=== PATIENT | female | born 1960 | race Caucasian/White ===

== ENCOUNTER 2017-11-21 01:06 | Emergency (ER) | payer BC ==
[2017-11-21 01:19] VITALS: BP 167/86; PULSE 107; TEMP 102.4; BMI 26.5
[2017-11-21] MEDS ORDERED: SODIUM CHLORIDE 1,000 ML IV STA (01:39)
--- NOTE | 2017-11-21 01:44 | PDOC ---
History of Present Illness - General Chief Complaint: Weakness Stated Complaint: WEAKNESS Time Seen by Provider: 11/21/17 01:08 History Source: Patient Exam Limitations: No Limitations - History of Present Illness Initial Comments: 11/21/17 01:40 57y F hx of dm, htn, presents with fevers/chills. Patient notes that she was feeling fine earlier today approximately midnight she started to develop fevers and chills. Patient endorses a mild posterior headache denies any neck stiffness, vision changes, numbness, tingling, weakness, cough, sneezing, nasal congestion, ear pain, shortness of breath, chest pain, abdominal pain, diarrhea , dysuria, frequency. Denies any recent travel or known sick contacts. Past History - Past Medical History Allergies/Adverse Reactions: Allergies Allergy/AdvReac Type Severity Reaction Status Date / Time No Known Allergies Allergy Verified 11/21/17 14:46 Home Medications: Ambulatory Orders Insulin (LOG) Aspart [NovoLOG -] 0 units SQ TID 11/21/17 Levofloxacin [Levaquin] 750 mg PO DAILY #7 tablet 11/21/17 - Suicide/Smoking/Psychosocial Hx Smoking History: Never smoked Have you smoked in the past 12 months: No Information on smoking cessation initiated: No Hx Alcohol Use: No Drug/Substance Use Hx: No Review of Systems - Review of Systems Able to Perform ROS?: Yes Comments:: 11/21/17 01:41 Constitutional - +Fever, Chills, no reported HEENT: no reported vision changes, sore throat Respiratory: no reported cough, sob, hemoptysis Cardiac: no reported chest pain, palpitations, light headedness, leg swelling Abd/GI: no reported abd pain, nausea, vomiting, blood per rectum, melena, diarrhea : no reported dysuria, frequency, discharge Musculskelatal - no reported back pain, joint swelling skin - no reported bruising, erythema, rash neurological: + headache, no reported numbness, focal weakness, tingling, ataxia , hematologic: no reported easy bruising, easy bleeding *Physical Exam - Vital Signs Last Vital Signs Temp Pulse Resp BP Pulse Ox 102.4 F H 107 H 18 167/86 98 11/21/17 01:14 11/21/17 01:14 11/21/17 01:14 11/21/17 01:14 11/21/17 01:14 - Physical Exam Comments: 11/21/17 01:42 GENERAL: The patient is awake, alert, and fully oriented, Nontoxic - in no acute distress. HEAD: Normocephalic, atraumatic. EYES: extraocular movements intact, sclera anicteric, conjunctiva clear. ENT: Normal voice, Moist mucous membranes. NECK: Normal range of motion, supple, negative Brudzinski and Kernig's LUNGS: Breath sounds equal, clear to auscultation bilaterally. No wheezes, no rhonchi, no rales. HEART: Regular rate and rhythm, normal S1 and S2 without murmur, rub or gallop. ABDOMEN: Soft, nontender, normoactive bowel sounds. No guarding, no rebound. . No CVA tenderness EXTREMITIES: Normal range of motion, no edema. No clubbing or cyanosis. No cords, erythema, or tenderness. NEUROLOGICAL: No facial assymetry, Normal speech, PSYCH: Normal mood, normal affect. SKIN: Warm, Dry, normal turgor, ED Treatment Course - LABORATORY CBC & Chemistry Diagram: 11/21/17 01:35 11/21/17 01:35 - RADIOLOGY Radiology Studies Ordered: Category Date Time Status CHEST X-RAY PORTABLE* [RAD] Stat Radiology 11/21/17 01:39 Ordered Medical Decision Making - Medical Decision Making 11/21/17 01:42 57-year-old female history of hypertension, diabetes, presenting with fever starting approximately midnight no focal complaints beside mild posterior headache. Patient's exam is nonfocal. The patient's vitals are noted for being febrile as well as sorry tachycardic. Suspect occult infection, we'll obtain chest x-ray, UA, sepsis order set obtained. Consider possible meningitis however no signs of meningismus including a supple neck with negative Brudzinski and Kernig's with normal range of motion of her neck. Will give the patient fluids for hydration, IV Tylenol Will reassess 11/21/17 02:52 labs reviewed no leukocytosis UA consistent with UTI - will treate with IV levaquin here x 1, and will send course of abx for outpatient mangement I discussed the physical exam findings, ancillary test results and final diagnoses with the patient. I answered all of the patient's questions. The patient was satisfied with the care received and felt comfortable with the discharge plan and treatment plan. The patient will call their primary care physician within 24 hours to arrange follow-up and will return to the Emergency Department with any new, persistent or worsening symptoms. *DC/Admit/Observation/Transfer Diagnosis at time of Disposition: Urinary tract infection Qualifiers: Urinary tract infection type: site unspecified Hematuria presence: with hematuria Qualified Code(s): N39.0 - Urinary tract infection, site not specified - Discharge Dispostion Disposition: HOME Condition at time of disposition: Improved Decision to Admit order: No - Prescriptions Prescriptions: Levofloxacin [Levaquin] 750 mg PO DAILY #7 tablet - Referrals Referrals: [facility] [place] [Provider Group] - Patient Instructions Printed Discharge Instructions: DI for Urinary Tract Infection (UTI) Additional Instructions: Regrese al departamento de emergencia de inmediato con CUALQUIER sntoma nuevo, persistente o que empeore incluyendo fiebre / escalofros, dolor de espalda, incapacidad para tolerar la ingesta oral u otras preocupaciones. DEBE llamar y hacer un seguimiento con benedict mdico en 2-3 plunkett para henry evaluacin ms profunda de raymon sntomas. Los resultados fueron discutidos con usted. Asegrese de que benedict mdico revise los resultados de benedict evaluacin de emergencia. ====== Return to the emergency department immediately with ANY new, persistent or worsening symptoms including fever/chills, back pain, inability to tolerate oral intake or other concerns. You MUST call and follow up with your doctor in 2-3 days for further evaluation of your symptoms. Results were discussed with you. Please make sure your doctor reviews the results of your emergency evaluation. Print Language: YI - Post Discharge Activity
[2017-11-21 01:47] LABS: EOS % 1.4 % (0-4.5); HEMATOCRIT 38.3 % (32.4-45.2); HEMOGLOBIN 12.8 GM/dL (10.7-15.3); LYMPH % 13.8 % (8-40); MCH 30.3 pg (25.7-33.7); MCHC 33.5 g/dl (32.0-36.0); MEAN CELL VOLUME 90.4 fl (80-96); MEAN PLT VOLUME 11.3 fl (7.5-11.1); MONO % 3.1 % (3.8-10.2); NEUT % 80.7 % (42.8-82.8); PLATELET COUNT 180 K/MM3 (134-434); RBC 4.24 M/mm3 (3.60-5.2); RDW 13.1 % (11.6-15.6); WHITE BLOOD COUNT 8.3 K/mm3 (4.0-10.0)
[2017-11-21 02:05] LABS: INR 1.05 (0.83-1.09); PROTHROMBIN TIME (PATIENT) 11.9 SEC (9.7-13.0)
[2017-11-21 02:14] LABS: ALBUMIN 3.7 g/dl (3.4-5.0); ALK PHOS 110 U/L (45-117); ANION GAP 6 MMOL/L (8-16); BILIRUBIN,TOTAL 0.4 mg/dL (0.2-1.0); BLOOD UREA NITROGEN 25 mg/dL (7-18); CALCIUM 8.8 mg/dL (8.5-10.1); CHLORIDE 104 mmol/L (98-107); CO2 28 mmol/L (21-32); CREATININE 0.8 mg/dL (0.55-1.3); GLUCOSE,RANDOM 270 mg/dL (74-106); POTASSIUM 4.3 mmol/L (3.5-5.1); SGOT/AST 20 U/L (15-37); SGPT/ALT 21 U/L (13-61); SODIUM 138 mmol/L (136-145); TOT PROT 7.5 g/dl (6.4-8.2)
[2017-11-21 02:36] LABS: URINE APPEARANCE CLEAR; URINE BILIRUBIN NEGATIVE (<2.0 mg/dL); URINE COLOR LTYELLOW; URINE GLUCOSE (UA) 3+ (NEGATIVE); URINE KETONE NEGATIVE (NEGATIVE); URINE LEUK ESTERASE TRACE (NEGATIVE); URINE NITRITE POSITIVE (NEGATIVE); URINE PROTEIN NEGATIVE (NEGATIVE); URINE UROBILINOGEN NEGATIVE mg/dL (0.2-1.0)
[2017-11-21 02:38] LABS: EPI CELLS RARE /HPF (FEW); URINE BACTERIA MODERATE /hpf (NONE SEEN); URINE MUCUS RARE
--- NOTE | 2017-11-21 21:16 | EKG ---
Test Reason : Blood Pressure : / mmHG Vent. Rate : 105 BPM Atrial Rate : 105 BPM P-R Int : 192 ms QRS Dur : 094 ms QT Int : 338 ms P-R-T Axes : 049 -33 062 degrees QTc Int : 446 ms SINUS TACHYCARDIA LEFT AXIS DEVIATION SEPTAL INFARCT , AGE UNDETERMINED ABNORMAL ECG NO PREVIOUS ECGS AVAILABLE Confirmed by HERI HINOJOSA MD ([id number]) on 11/21/2017 9:16:35 PM Referred By: Confirmed By:HERI HINOJOSA MD
== END 2017-11-21 04:30 | disposition home or self-care (01) ==
LOC: JER 01:06
PROC: 3E03329 Introduction of Other Anti-infective into Peripheral Vein, Percutaneous Approach (ICD-10-PCS; principal; 2017-11-21)
PROC: 3E0337Z Introduction of Electrolytic and Water Balance Substance into Peripheral Vein, Percutaneous Approach (ICD-10-PCS; 2017-11-21)
DX: N39.0 Urinary tract infection, site not specified (principal); E11.9 Type 2 diabetes mellitus without complications; I10 Essential (primary) hypertension
CPT/HCPCS: 36415; 71045-TC-FY; 80053; 81003; 81015; 83605; 84484; 85025; 85610; 87040; 87086; 87186; 93005; 93010; 99281-25; J7030

== ENCOUNTER 2017-11-21 14:41 | Inpatient (IN) | payer BC ==
--- NOTE | 2017-11-21 14:45 | PDOC ---
History of Present Illness - General Chief Complaint: Revisit, Lab Variance Stated Complaint: REVISIT Time Seen by Provider: 11/21/17 14:45 - History of Present Illness Initial Comments: 11/21/17 14:50 Ms. Renee is a 57 yo female w/ pmh of HTN, DM who presented this morning for fevers/chills and found to have UTI. Patient called back in as found to have gram negative bacilli in blood. Patient reports continued fevers, chills, and occasional burning in feet. Discussed need for admission for inpatient ABX. Patient consented. The patient denies chest pain, shortness of breath, headache and dizziness. Denies nausea, vomit, diarrhea and constipation. Denies dysuria, frequency, urgency and hematuria. Allergies: NKDA Past History - Past Medical History Allergies/Adverse Reactions: Allergies Allergy/AdvReac Type Severity Reaction Status Date / Time No Known Allergies Allergy Verified 11/21/17 14:46 Home Medications: Ambulatory Orders Levofloxacin [Levaquin] 750 mg PO DAILY #7 tablet 11/21/17 - Suicide/Smoking/Psychosocial Hx Smoking History: Never smoked Have you smoked in the past 12 months: No Hx Alcohol Use: No Drug/Substance Use Hx: No Review of Systems - Review of Systems Comments:: 11/21/17 15:02 GENERAL/CONSTITUTIONAL: +Fever/chills as described. No weakness. HEAD, EYES, EARS, NOSE AND THROAT: No change in vision. No ear pain or discharge. No sore throat. CARDIOVASCULAR: No chest pain or shortness of breath RESPIRATORY: No cough, wheezing, or hemoptysis. GASTROINTESTINAL: No nausea, vomiting, diarrhea or constipation. GENITOURINARY: No dysuria, frequency, or change in urination. MUSCULOSKELETAL: +Diabeteic leg pain. No joint or muscle swelling or pain. No neck or back pain. SKIN: No rash NEUROLOGIC: No headache, vertigo, loss of consciousness, or change in strength/ sensation. ENDOCRINE: No increased thirst. No abnormal weight change HEMATOLOGIC/LYMPHATIC: No anemia, easy bleeding, or history of blood clots. ALLERGIC/IMMUNOLOGIC: No hives or skin allergy. *Physical Exam - Physical Exam Comments: 11/21/17 15:03 GENERAL: Awake, alert, and fully oriented, in no acute distress HEAD: No signs of trauma, normocephalic, atraumatic EYES: PERRLA, EOMI, sclera anicteric, conjunctiva clear ENT: Auricles normal inspection, hearing grossly normal, nares patent, oropharynx clear without exudates. Moist mucosa NECK: Normal ROM, supple, no lymphadenopathy, JVD, or masses LUNGS: No distress, speaks full sentences, clear to auscultation bilaterally HEART: Regular rate and rhythm, normal S1 and S2, no murmurs, rubs or gallops, peripheral pulses normal and equal bilaterally. ABDOMEN: Soft, nontender, normoactive bowel sounds. No guarding, no rebound. No masses EXTREMITIES: Normal inspection, Normal range of motion, no edema. No clubbing or cyanosis. NEUROLOGICAL: Cranial nerves II through XII grossly intact. Normal speech, normal gait, no focal sensorimotor deficits SKIN: Warm, Dry, normal turgor, no rashes or lesions noted. Medical Decision Making - Medical Decision Making 11/21/17 15:04 Ms. Renee is a 57 yo female w/ pmh as described who represents upon direction for noted bacteremia. Patient will be started on zosyn and admitted to inpatient team for further care. *DC/Admit/Observation/Transfer Diagnosis at time of Disposition: Bacteremia Urinary tract infection Qualifiers: Urinary tract infection type: site unspecified Hematuria presence: with hematuria Qualified Code(s): N39.0 - Urinary tract infection, site not specified ; R31.9 - Hematuria, unspecified - Discharge Dispostion Decision to Admit order: Yes - Referrals - Patient Instructions - Post Discharge Activity
[2017-11-21] MEDS ORDERED: PIPERACILLIN/TAZOB 3.375 GM 3.375 GM in DEXTROSE 5%-WATER - 50 ML IVPB ONE (14:47)
[2017-11-21] MEDS ORDERED: PIPERACILLIN/TAZOB 3.375 GM 3.375 GM/50 ML BAG IVPB ONE (14:49)
--- NOTE | 2017-11-21 15:04 | PDOC ---
Attending Attestation - Resident Resident Name: RossfideliakaeRavi - ED Attending Attestation I have performed the following: I have examined & evaluated the patient, The case was reviewed & discussed with the resident, I agree w/resident's findings & plan, Exceptions are as noted - HPI HPI: 11/21/17 15:02 57-year-old female with pmh hypertension, diabetes was callback for positive blood cultures for gram-negative rods. Patient was seen here earlier today and noted to have a urinary tract infection and dischargde on fluoroquinolone. Patient continues to complain of persistent fevers and chills. Patient was called back to the ER. Patient has no other complaints. - Physicial Exam PE: 11/21/17 15:03 GENERAL: Awake, alert, and fully oriented, in no acute distress HEAD: No signs of trauma EYES:EOMI, sclera anicteric, conjunctiva clear ENT: Auricles normal inspection, hearing grossly normal, nares patent NECK: Normal ROM, supple EXTREMITIES: Normal range of motion, no edema. No clubbing or cyanosis. No cords, erythema, or tenderness NEUROLOGICAL: Cranial nerves II through XII grossly intact. Normal speech, SKIN: Warm, Dry, normal turgor, no rashes or lesions noted. - Medical Decision Making 11/21/17 15:03 Vital Signs Temp Pulse Resp BP Pulse Ox 99.1 F 83 18 108/59 99 11/21/17 14:43 11/21/17 14:43 11/21/17 14:43 11/21/17 14:43 11/21/17 14:43 Patient's findings and concerning for bacteremia given positive blood cultures. We'll initiate IV Zosyn and admit the patient to the hospital for urinary tract infection and bacteremia.
[2017-11-21] MEDS ORDERED: SODIUM CHLORIDE 500 ML IV STA (15:29)
[2017-11-21 15:34] LABS: BASO % 0.5 % (0-2.0); EOS % 0.8 % (0-4.5); HEMATOCRIT 36.6 % (32.4-45.2); HEMOGLOBIN 12.5 GM/dL (10.7-15.3); LYMPH % 13.4 % (8-40); MCH 30.6 pg (25.7-33.7); MCHC 34.1 g/dl (32.0-36.0); MEAN CELL VOLUME 89.7 fl (80-96); MEAN PLT VOLUME 10.9 fl (7.5-11.1); MONO % 7.4 % (3.8-10.2); NEUT % 77.9 % (42.8-82.8); PLATELET COUNT 165 K/MM3 (134-434); RBC 4.08 M/mm3 (3.60-5.2); RDW 13.3 % (11.6-15.6); WHITE BLOOD COUNT 8.5 K/mm3 (4.0-10.0)
[2017-11-21] MEDS ORDERED: ACETAMINOPHEN 325 MG TABLET (FP) PO PRN (15:36)
[2017-11-21] MEDS ORDERED: INSULIN REGULAR HUMAN 100 UNITS/ML *VIAL ONE (15:39)
[2017-11-21] MEDS: INSULIN SLIDING SCALE (NOVOLOG) 1 VIAL SQ SCH (15:41)
[2017-11-21] MEDS: SODIUM CHLORIDE 1,000 ML IV SCH ×2 (15:56→23:15)
--- NOTE | 2017-11-21 16:05 | HP ---
Admitting History and Physical - Admission Chief Complaint: Called Back from Home for + blood Culture History of Present Illness: 57 yrs old f [place] [facility] [place] [facility] [place] H/o HTN, Long standing t2DM on Insulin (Lantus 20 units bed time and Novalog 7 units TID) visiting family members in [place], last night came to Ed with c/ o fever, chills, CVA pain and tenderness with nausea for 2 days (recently treated for UTI 1 month ago) patient was worked up for UTI , UA was + so discharged on PO Levofloaxacin, around 2.00 am. Blood culture collected last night grew GNB in both bottles so patient is called back from home for IV Abx, I evaluated the patient in the ED c/o weakness, fever, chills and suprapubic pain denies any dysuria, vomiting, diarrhea, cough or SOB no c/o chest pain or Palpitation, Rpt CBC, BMP are at abse line recived 1 dise of Ceftriaxone admitted fr further management. - Past Medical History Cardiovascular: Yes: HTN, Hyperlipdemia Endocrine: Yes: Diabetes Insipidus - Past Surgical History Past Surgical History: Yes: None - Smoking History Smoking history: Never smoked Have you smoked in the past 12 months: No - Alcohol/Substance Use Hx Alcohol Use: No - Social History Usual Living Arrangement: Yes: With Spouse Home Medications - Allergies Allergies/Adverse Reactions: Allergies Allergy/AdvReac Type Severity Reaction Status Date / Time No Known Allergies Allergy Verified 11/21/17 14:46 - Home Medications Home Medications: Ambulatory Orders Insulin (LOG) Aspart [NovoLOG -] 0 units SQ TID 11/21/17 Levofloxacin [Levaquin] 750 mg PO DAILY #7 tablet 11/21/17 Family Disease History - Family Disease History Family Disease History: Diabetes: Father, Mother Review of Systems - Review of Systems Constitutional: reports: Chills, Diaphoresis, Fever, Lethargy, Loss of Appetite , Malaise Eyes: denies: Blind Spots, Blurred Vision HENT: denies: Difficult Swallowing, Ear Discharge, Ear Pain, Epistaxis Neck: denies: Decreased ROM, Lumps, Pain on Movement, Stiffness Cardiovascular: denies: Chest Pain, Edema, Palpitations, Shortness of Breath Respiratory: denies: Cough, Exercise Intolerance, Hemoptysis, Orthopnea Gastrointestinal: reports: Abdominal Pain, Nausea. denies: Bloating, Diarrhea, Melena, Vomiting Genitourinary: reports: Flank Pain. denies: Burning, Incontinence Musculoskeletal: reports: Back Pain. denies: Crepitus, Decreased ROM, Extremity Pain Integumentary: denies: Blister, Bruising, Change in Color Neurological: reports: Change in LOC. denies: Change in Speech, Confusion, Dizziness Endocrine: denies: Excessive Sweating, Flushing, Increased Hunger, Intolerance to Cold Psychiatric: denies: Altered Sleep Pattern, Anxiety Pain Intensity: 3 Physical Examination Vital Signs: Vital Signs Temperature 99.1 F 11/21/17 14:43 Pulse Rate 83 11/21/17 14:43 Respiratory Rate 18 11/21/17 14:43 Blood Pressure 108/59 11/21/17 14:43 O2 Sat by Pulse Oximetry (%) 99 11/21/17 14:43 Middle aged F comfortable not in distress HEENT: Mm moist, bianca nemia, PERRLA, EOMI NERCK: No JVd No Bruit CHEST: CTA B/L CVS; s1S2 R no m/g/r ABD: No distention, mild suprapubic tenderness EXT: Trace edema feet, no calf tenderness, Pulses +, B/L CVA Tenderness Rt > Left [employer]: AOx3 non focal, no motor sensory deficit Labs: CBC, BMP 11/21/17 15:29 Laboratory Results - last 24 hr 11/21/17 11/21/17 15:27 15:29 WBC 8.5 RBC 4.08 Hgb 12.5 Hct 36.6 MCV 89.7 MCH 30.6 MCHC 34.1 RDW 13.3 Plt Count 165 MPV 10.9 Absolute Neuts (auto) 6.6 Neutrophils % 77.9 Lymphocytes % 13.4 Monocytes % 7.4 D Eosinophils % 0.8 Basophils % 0.5 Nucleated RBC % 0 POC Glucometer [id number] Last night labs reviewed: CMP: normal CBC: Normal Lactic acid 0.8 UA: WBC 10, LE Trace and Nitrite Moderate Bacteria ++ Imaging - Results X-ray: Report Reviewed (Normal (Lasdt night Visit)) MRI: Report Reviewed (Pending) EKG: Report Reviewed (Pending) Problem List - Problems (1) Sepsis secondary to UTI Assessment/Plan: UA +, Blood Culture Grew GNB , grew with in 12 hrs Early Grower most likely E Colli or KP unlikely Pseudomonas , IV hydration, CT abd with, Id consult F/U urine and Blood culture result, sr Lactic acid level Code(s): A41.9 - SEPSIS, UNSPECIFIED ORGANISM; N39.0 - URINARY TRACT INFECTION, SITE NOT SPECIFIED (2) T2DM (type 2 diabetes mellitus) Assessment/Plan: Diabetic Diet Cont Levimer 15 units and Correction dose Novalog AC and Bed time F/U HBa1C level Code(s): E11.9 - TYPE 2 DIABETES MELLITUS WITHOUT COMPLICATIONS (3) HTN (hypertension) Assessment/Plan: H/o HTN unable to recall medication BP 108/70 introduce BP meds once patient is Hypertensive. Family will bring home meds. Code(s): I10 - ESSENTIAL (PRIMARY) HYPERTENSION
[2017-11-21] MEDS ORDERED: CEFTRIAXONE 1 GM in DEXTROSE 5%-WATER - 50 ML IVPB SCH (17:15)
[2017-11-21 18:02] VITALS: BMI 31.8
[2017-11-21 19:17] LABS: ANION GAP 11 MMOL/L (8-16); BLOOD UREA NITROGEN 14 mg/dL (7-18); CALCIUM 8.8 mg/dL (8.5-10.1); CHLORIDE 106 mmol/L (98-107); CO2 23 mmol/L (21-32); CREATININE 0.7 mg/dL (0.55-1.3); GLUCOSE,RANDOM 272 mg/dL (74-106); POTASSIUM 4.2 mmol/L (3.5-5.1); SODIUM 140 mmol/L (136-145)
[2017-11-21] MEDS ORDERED: PIPERACILLIN/TAZOBACTAM 3.375 GM VIAL IVPB ONE (20:54)
[2017-11-21] MEDS ORDERED: DEXTROSE 5%-WATER - 50 ML IVPB ONE (20:54)
[2017-11-21] MEDS: INSULIN (LEVEMIR) 100 UNITS/ML UNITS SQ SCH (22:13)
[2017-11-21] MEDS: PIPERACILLIN/TAZOB 3.375 GM 3.375 GM in DEXTROSE 5%-WATER - 50 ML IVPB SCH (22:13)
[2017-11-22] MEDS: PIPERACILLIN/TAZOB 3.375 GM 3.375 GM in DEXTROSE 5%-WATER - 50 ML IVPB SCH ×3 (02:50→18:13)
[2017-11-22] MEDS ORDERED: PIPERACILLIN/TAZOBACTAM 3.375 GM VIAL IVPB ONE ×3 (02:57→15:55)
[2017-11-22] MEDS ORDERED: DEXTROSE 5%-WATER - 50 ML IVPB ONE ×3 (02:58→15:55)
[2017-11-22] MEDS: INSULIN SLIDING SCALE (NOVOLOG) 1 VIAL SQ SCH ×3 (06:48→18:14)
[2017-11-22 07:31] LABS: BASO % 0.7 % (0-2.0); EOS % 1.2 % (0-4.5); HEMOGLOBIN 11.6 GM/dL (10.7-15.3); LYMPH % 31.5 % (8-40); MCH 30.1 pg (25.7-33.7); MEAN CELL VOLUME 88.6 fl (80-96); MEAN PLT VOLUME 10.6 fl (7.5-11.1); MONO % 10.9 % (3.8-10.2); NEUT % 55.7 % (42.8-82.8); PLATELET COUNT 160 K/MM3 (134-434); RBC 3.84 M/mm3 (3.60-5.2); RDW 13.2 % (11.6-15.6); WHITE BLOOD COUNT 5.5 K/mm3 (4.0-10.0)
[2017-11-22 07:57] LABS: ALBUMIN 2.8 g/dl (3.4-5.0); ALK PHOS 81 U/L (45-117); ANION GAP 9 MMOL/L (8-16); BILIRUBIN,TOTAL 0.4 mg/dL (0.2-1.0); BLOOD UREA NITROGEN 10 mg/dL (7-18); CHLORIDE 109 mmol/L (98-107); CO2 25 mmol/L (21-32); CREATININE 0.7 mg/dL (0.55-1.3); GLUCOSE,RANDOM 193 mg/dL (74-106); POTASSIUM 3.6 mmol/L (3.5-5.1); SGOT/AST 23 U/L (15-37); SGPT/ALT 28 U/L (13-61); SODIUM 143 mmol/L (136-145); TOT PROT 6.1 g/dl (6.4-8.2)
[2017-11-22] MEDS: ENOXAPARIN NA (PORCINE) 40 MG/0.4 ML DISP.SYRIN SQ SCH (10:02)
--- NOTE | 2017-11-22 10:06 | CON.ID ---
Consult Consult Specialty:: infectious diseases Referred by:: Reason for Consultation:: positive blood cx - History of Present Illness Chief Complaint: abd pain and fever History of Present Illness: 57 yrs old f [place] [facility] [place] [facility] in [place] H/o HTN,dm came to the hospitla because od fever and chills which was associated with abd pain in both lower region patient was recently treated with abx for uti and was worked up and send home on levaquin patients blood cx came back positive and was called back to the the hospital for iv abx and further management patient was started on iv abx currently patient is c/o of pain in both lower abd quadrants - History Source History Provided By: Patient Limitations to Obtaining History: No Limitations - Past Medical History Cardio/Vascular: Yes: HTN, Hyperlipdemia Endocrine: Yes: Diabetes Insipidus - Past Surgical History Past Surgical History: Yes: None - Alcohol/Substance Use Hx Alcohol Use: No - Smoking History Smoking history: Never smoked Have you smoked in the past 12 months: No Home Medications - Allergies Allergies/Adverse Reactions: Allergies Allergy/AdvReac Type Severity Reaction Status Date / Time No Known Allergies Allergy Verified 11/21/17 14:46 - Home Medications Home Medications: Ambulatory Orders Insulin (LOG) Aspart [NovoLOG -] 0 units SQ TID 11/21/17 Levofloxacin [Levaquin] 750 mg PO DAILY #7 tablet 11/21/17 Family Disease History - Family Disease History Family Disease History: Diabetes: Father, Mother Review of Systems - Review of Systems Constitutional: reports: Fever Eyes: reports: No Symptoms HENT: reports: No Symptoms Neck: reports: No Symptoms Cardiovascular: reports: No Symptoms Respiratory: reports: No Symptoms Gastrointestinal: reports: Abdominal Pain Genitourinary: reports: No Symptoms Musculoskeletal: reports: No Symptoms Integumentary: reports: No Symptoms Neurological: reports: No Symptoms Endocrine: reports: No Symptoms Hematology/Lymphatic: reports: No Symptoms Psychiatric: reports: No Symptoms Physical Exam Vital Signs: Vital Signs Temperature 98.2 F 11/22/17 06:25 Pulse Rate 66 11/22/17 06:25 Respiratory Rate 18 11/22/17 06:25 Blood Pressure 107/59 11/22/17 06:25 O2 Sat by Pulse Oximetry (%) 97 11/21/17 21:00 Constitutional: Yes: Well Nourished, Calm, Mild Distress Cardiovascular: Yes: Regular Rate and Rhythm Respiratory: Yes: Regular, CTA Bilaterally Gastrointestinal: Yes: Soft, Tenderness (both lower quadrant) Musculoskeletal: Yes: WNL Extremities: Yes: WNL Neurological: Yes: Alert, Oriented Psychiatric: Yes: Alert, Oriented Labs: CBC, BMP 11/22/17 06:30 11/22/17 06:30 Imaging - Results Cat Scan: Report Reviewed, Image Reviewed Assessment/Plan patient with recent uti coming back wiht sepsis ct scan results noted i think the infection is coming from the urinary system patient currently on zosyn Problem List - Problems (1) Sepsis secondary to UTI Code(s): A41.9 - SEPSIS, UNSPECIFIED ORGANISM; N39.0 - URINARY TRACT INFECTION, SITE NOT SPECIFIED (2) T2DM (type 2 diabetes mellitus) Code(s): E11.9 - TYPE 2 DIABETES MELLITUS WITHOUT COMPLICATIONS (3) HTN (hypertension) Code(s): I10 - ESSENTIAL (PRIMARY) HYPERTENSION 4 gm negative bacteremia plan will continue zosyn will repeat blood cx tomorrow rest as per the team monitor fevers
--- NOTE | 2017-11-22 11:10 | PN ---
Physical Exam: SUBJECTIVE: Patient seen and examined at bedside complains of chills denies fevers pain in the back is better this morning [facility] [address] in [place] called and home emds updated and reconciled OBJECTIVE: Vital Signs Period Temp Pulse Resp BP Sys/Conley Pulse Ox Last 24 Hr 98.1 F-102.5 F 66-85 16-20 99-130/57-77 97-99 GENERAL: The patient is awake, alert, and fully oriented, in no acute distress. HEAD: Normal with no signs of trauma. ENT: moist mucous membranes. NECK: Trachea midline, full range of motion LUNGS: Breath sounds equal, clear to auscultation bilaterally HEART: Regular rate and rhythm, S1, S2 without murmur ABDOMEN: Soft, nontender, nondistended, no suprapubic tenderness EXTREMITIES: warm, well-perfused, no edema. NEUROLOGICAL: Cranial nerves II through XII grossly intact PSYCH: Normal mood, normal affect. SKIN: Warm, dry, normal turgor Laboratory Results - last 24 hr 11/21/17 11/21/17 11/21/17 15:27 15:29 16:00 WBC 8.5 RBC 4.08 Hgb 12.5 Hct 36.6 MCV 89.7 MCH 30.6 MCHC 34.1 RDW 13.3 Plt Count 165 MPV 10.9 Absolute Neuts (auto) 6.6 Neutrophils % 77.9 Lymphocytes % 13.4 Monocytes % 7.4 D Eosinophils % 0.8 Basophils % 0.5 Nucleated RBC % 0 Sodium Potassium Chloride Carbon Dioxide Anion Gap BUN Creatinine Creat Clearance w eGFR POC Glucometer [phone] Random Glucose Hemoglobin A1c % Lactic Acid 1.0 Calcium Total Bilirubin AST ALT Alkaline Phosphatase Total Protein Albumin 11/21/17 11/21/17 11/21/17 17:50 17:50 23:11 WBC RBC Hgb Hct MCV MCH MCHC RDW Plt Count MPV Absolute Neuts (auto) Neutrophils % Lymphocytes % Monocytes % Eosinophils % Basophils % Nucleated RBC % Sodium 140 Potassium 4.2 Chloride 106 Carbon Dioxide 23 Anion Gap 11 BUN 14 Creatinine 0.7 Creat Clearance w eGFR > 60 POC Glucometer 190 Random Glucose 272 H Hemoglobin A1c % Lactic Acid 0.7 Calcium 8.8 Total Bilirubin AST ALT Alkaline Phosphatase Total Protein Albumin 11/22/17 11/22/17 11/22/17 06:30 06:30 06:30 WBC 5.5 RBC 3.84 Hgb 11.6 Hct 34.0 MCV 88.6 MCH 30.1 MCHC 34.0 RDW 13.2 Plt Count 160 MPV 10.6 Absolute Neuts (auto) 3.0 Neutrophils % 55.7 D Lymphocytes % 31.5 D Monocytes % 10.9 H Eosinophils % 1.2 Basophils % 0.7 Nucleated RBC % 0 Sodium 143 Potassium 3.6 Chloride 109 H Carbon Dioxide 25 Anion Gap 9 BUN 10 Creatinine 0.7 Creat Clearance w eGFR > 60 POC Glucometer Random Glucose 193 H Hemoglobin A1c % 10.4 H Lactic Acid Calcium 8.0 L Total Bilirubin 0.4 AST 23 ALT 28 Alkaline Phosphatase 81 Total Protein 6.1 L Albumin 2.8 L 11/22/17 06:47 WBC RBC Hgb Hct MCV MCH MCHC RDW Plt Count MPV Absolute Neuts (auto) Neutrophils % Lymphocytes % Monocytes % Eosinophils % Basophils % Nucleated RBC % Sodium Potassium Chloride Carbon Dioxide Anion Gap BUN Creatinine Creat Clearance w eGFR POC Glucometer 197 Random Glucose Hemoglobin A1c % Lactic Acid Calcium Total Bilirubin AST ALT Alkaline Phosphatase Total Protein Albumin Active Medications Generic Name Dose Route Start Last Admin Trade Name Freq PRN Reason Stop Dose Admin Acetaminophen 650 mg 11/21/17 15:36 11/21/17 23:17 Tylenol - PO 650 mg Q6H PRN Administration FEVER Enoxaparin Sodium 40 mg 11/22/17 10:00 11/22/17 10:02 Lovenox - SQ 40 mg DAILY SLY Administration Sodium Chloride 1,000 mls @ 100 mls/hr 11/21/17 15:45 11/21/17 23:15 Normal Saline - IV 100 mls/hr ASDIR SLY Administration Piperacillin Sod/Tazobactam 50 mls @ 100 mls/hr 11/21/17 22:00 11/22/17 10:01 Sod 3.375 gm/ Dextrose IVPB 100 mls/hr Q8H-IV SLY Administration Protocol Insulin Aspart 1 vial 11/21/17 16:30 11/22/17 06:48 Novolog Vial Sliding Scale - SQ 2 unit TIDAC SLY Administration Protocol Insulin Detemir 20 units 11/21/17 22:00 11/21/17 22:13 Levemir Vial SQ 20 units HS SLY Administration ASSESSMENT/PLAN: 57F with PMH of HTN, HLD, and DM called back to the hospital after blood and urine cultures are positive for lactose fermenting GNB. Cultures were originally taken in the ED and patient discharged with ABx. Sepsis: Patient has a UTI which has translocated to bacteremia. F/u BCx for speciation and sensitivities f/u UCx for speciation and sensitivities ID consult azppreciated-discussed with Dr. Grewal. Continue Zosyn monitor fever curve antipyretics IVF DM: Patient seems uncontrolled at home HbA1C 10.4 Patient did not know her dose of insulin Pharmacy called patient on Metformin Januvia Novolog 10units TIDAC on levemir 18units HS Continue levemir continue januvia hold metformin ISS BGM TIDAC and HS HTN: Restart ramipril 2.5mg po daily HLD: Continue Lipitor 40mg po HS FEN: NS @ 100ml/hr no electrolyte issues diabetic diet PPx: Lovenox Pharmacy called and medications reconciled Case discussed with Dr. Cantu Visit type - Emergency Visit Emergency Visit: Yes ED Registration Date: 11/21/17 Care time: The patient presented to the Emergency Department on the above date and was hospitalized for further evaluation of their emergent condition. - New Patient This patient is new to me today: Yes Date on this admission: 11/22/17 - Critical Care Critical Care patient: No
[2017-11-22] MEDS: SODIUM CHLORIDE 1,000 ML IV SCH ×2 (13:00→23:14)
[2017-11-22] MEDS: sitaGLIPtin PHOSPHATE 100 MG TABLET (FP) PO SCH (13:02)
[2017-11-22] MEDS: RAMIPRIL 2.5 MG CAPSULE (FP) PO SCH (13:02)
--- NOTE | 2017-11-22 14:50 | PN ---
Teaching Attending Note Name of Resident: Tk Flower ATTENDING PHYSICIAN STATEMENT I saw and evaluated the patient. I reviewed the resident's note and discussed the case with the resident. I agree with the resident's findings and plan as documented. SUBJECTIVE: Patient complains of chills. OBJECTIVE: Vital Signs Period Temp Pulse Resp BP Sys/Conley Pulse Ox Last 24 Hr 98.1 F-102.5 F 66-85 16-20 99-130/57-77 97-99 HEART: S1S2, RRR LUNGS: Clear ABDOMEN: Obese, soft, non-tender, non-distended, normal BS EXTREMITIES: No edema Laboratory Results - last 24 hr 11/21/17 11/21/17 11/21/17 15:27 15:29 16:00 WBC 8.5 RBC 4.08 Hgb 12.5 Hct 36.6 MCV 89.7 MCH 30.6 MCHC 34.1 RDW 13.3 Plt Count 165 MPV 10.9 Absolute Neuts (auto) 6.6 Neutrophils % 77.9 Lymphocytes % 13.4 Monocytes % 7.4 D Eosinophils % 0.8 Basophils % 0.5 Nucleated RBC % 0 Sodium Potassium Chloride Carbon Dioxide Anion Gap BUN Creatinine Creat Clearance w eGFR POC Glucometer [phone] Random Glucose Hemoglobin A1c % Lactic Acid 1.0 Calcium Total Bilirubin AST ALT Alkaline Phosphatase Total Protein Albumin 11/21/17 11/21/17 11/21/17 17:50 17:50 23:11 WBC RBC Hgb Hct MCV MCH MCHC RDW Plt Count MPV Absolute Neuts (auto) Neutrophils % Lymphocytes % Monocytes % Eosinophils % Basophils % Nucleated RBC % Sodium 140 Potassium 4.2 Chloride 106 Carbon Dioxide 23 Anion Gap 11 BUN 14 Creatinine 0.7 Creat Clearance w eGFR > 60 POC Glucometer 190 Random Glucose 272 H Hemoglobin A1c % Lactic Acid 0.7 Calcium 8.8 Total Bilirubin AST ALT Alkaline Phosphatase Total Protein Albumin 11/22/17 11/22/17 11/22/17 06:30 06:30 06:30 WBC 5.5 RBC 3.84 Hgb 11.6 Hct 34.0 MCV 88.6 MCH 30.1 MCHC 34.0 RDW 13.2 Plt Count 160 MPV 10.6 Absolute Neuts (auto) 3.0 Neutrophils % 55.7 D Lymphocytes % 31.5 D Monocytes % 10.9 H Eosinophils % 1.2 Basophils % 0.7 Nucleated RBC % 0 Sodium 143 Potassium 3.6 Chloride 109 H Carbon Dioxide 25 Anion Gap 9 BUN 10 Creatinine 0.7 Creat Clearance w eGFR > 60 POC Glucometer Random Glucose 193 H Hemoglobin A1c % 10.4 H Lactic Acid Calcium 8.0 L Total Bilirubin 0.4 AST 23 ALT 28 Alkaline Phosphatase 81 Total Protein 6.1 L Albumin 2.8 L 11/22/17 11/22/17 06:47 12:29 WBC RBC Hgb Hct MCV MCH MCHC RDW Plt Count MPV Absolute Neuts (auto) Neutrophils % Lymphocytes % Monocytes % Eosinophils % Basophils % Nucleated RBC % Sodium Potassium Chloride Carbon Dioxide Anion Gap BUN Creatinine Creat Clearance w eGFR POC Glucometer 197 253 Random Glucose Hemoglobin A1c % Lactic Acid Calcium Total Bilirubin AST ALT Alkaline Phosphatase Total Protein Albumin Current Medications Generic Name Dose Route Start Last Admin Trade Name Freq PRN Reason Stop Dose Admin Acetaminophen 650 mg 11/21/17 15:36 11/21/17 23:17 Tylenol - PO 650 mg Q6H PRN Administration FEVER Atorvastatin Calcium 40 mg 11/22/17 22:00 Lipitor - PO HS SLY Enoxaparin Sodium 40 mg 11/22/17 10:00 11/22/17 10:02 Lovenox - SQ 40 mg DAILY SLY Administration Sodium Chloride 1,000 mls @ 100 mls/hr 11/21/17 15:45 11/22/17 13:00 Normal Saline - IV 100 mls/hr ASDIR SLY Administration Piperacillin Sod/Tazobactam 50 mls @ 100 mls/hr 11/21/17 22:00 11/22/17 10:01 Sod 3.375 gm/ Dextrose IVPB 100 mls/hr Q8H-IV SLY Administration Protocol Insulin Aspart 1 vial 11/21/17 16:30 11/22/17 13:01 Novolog Vial Sliding Scale - SQ 8 unit TIDAC SLY Administration Protocol Insulin Detemir 20 units 11/21/17 22:00 11/21/17 22:13 Levemir Vial SQ 20 units HS SLY Administration Ramipril 2.5 mg 11/22/17 11:45 11/22/17 13:02 Altace - PO 2.5 mg DAILY SLY Administration Sitagliptin Phosphate 100 mg 11/22/17 11:30 11/22/17 13:02 Januvia - PO 100 mg DAILY SLY Administration ASSESSMENT AND PLAN: This is a 57 year old woman with a history of HTN, type 2 DM, hyperlipidemia who presented to the ED on 11/21 with fever and chills, was diagnosed with UTI, and called back for positive blood cultures. 1. Sepsis secondary to gram negative UTI and bacteremia - Had temp 102.4, HR 107 at initial presentation - Continue Zosyn, IV fluid - Follow up urine, blood cultures 2. HTN - Continue Altace 3. Hyperlipidemia - Continue Lipitor 4. Type 2 DM - Continue JanNelson womack, Novolog sliding scale
[2017-11-22] MEDS: INSULIN (LEVEMIR) 100 UNITS/ML UNITS SQ SCH (21:24)
[2017-11-22] MEDS: ATORVASTATIN CA 40 MG TABLET (FP) PO SCH (21:25)
[2017-11-23] MEDS: PIPERACILLIN/TAZOB 3.375 GM 3.375 GM in DEXTROSE 5%-WATER - 50 ML IVPB SCH ×3 (02:55→17:05)
[2017-11-23] MEDS ORDERED: PIPERACILLIN/TAZOBACTAM 3.375 GM VIAL IVPB ONE ×4 (04:21→23:43)
[2017-11-23] MEDS ORDERED: DEXTROSE 5%-WATER - 50 ML IVPB ONE ×4 (04:22→23:43)
[2017-11-23] MEDS: INSULIN SLIDING SCALE (NOVOLOG) 1 VIAL SQ SCH ×3 (06:18→17:06)
[2017-11-23 07:47] LABS: HEMATOCRIT 33.4 % (32.4-45.2); HEMOGLOBIN 11.3 GM/dL (10.7-15.3); MCH 30.1 pg (25.7-33.7); MCHC 33.9 g/dl (32.0-36.0); MEAN CELL VOLUME 88.9 fl (80-96); MEAN PLT VOLUME 10.1 fl (7.5-11.1); PLATELET COUNT 168 K/MM3 (134-434); RBC 3.76 M/mm3 (3.60-5.2); RDW 13.3 % (11.6-15.6); WHITE BLOOD COUNT 5.7 K/mm3 (4.0-10.0)
[2017-11-23 08:11] LABS: CHLORIDE 110 mmol/L (98-107); POTASSIUM 3.6 mmol/L (3.5-5.1); SODIUM 143 mmol/L (136-145)
[2017-11-23 08:20] LABS: ANION GAP 7 MMOL/L (8-16); BLOOD UREA NITROGEN 9 mg/dL (7-18); CO2 26 mmol/L (21-32); CREATININE 0.6 mg/dL (0.55-1.3); GLUCOSE,RANDOM 114 mg/dL (74-106); MAGNESIUM 1.6 mg/dL (1.8-2.4); PHOSPHOROUS 3.7 mg/dL (2.5-4.9)
[2017-11-23] MEDS ORDERED: POTASSIUM CHLORIDE TABS 20 MEQ TABLET.ER (FP) PO ONE (08:59)
[2017-11-23] MEDS: MAGNESIUM OXIDE 400 MG TABLET (FP) PO SCH ×2 (10:11→21:52)
[2017-11-23] MEDS: ENOXAPARIN NA (PORCINE) 40 MG/0.4 ML DISP.SYRIN SQ SCH (10:14)
[2017-11-23] MEDS: sitaGLIPtin PHOSPHATE 100 MG TABLET (FP) PO SCH (10:14)
[2017-11-23] MEDS: RAMIPRIL 2.5 MG CAPSULE (FP) PO SCH (10:14)
--- NOTE | 2017-11-23 10:15 | PN ---
Progress Note, Physician History of Present Illness: patient stable no new issues abd pain improving no specific complaints - Current Medication List Current Medications: Active Medications Acetaminophen (Tylenol -) 650 mg PO Q6H PRN PRN Reason: FEVER Last Admin: 11/21/17 23:17 Dose: 650 mg Atorvastatin Calcium (Lipitor -) 40 mg PO HS [facility] Last Admin: 11/22/17 21:25 Dose: 40 mg Enoxaparin Sodium (Lovenox -) 40 mg SQ DAILY [facility] Last Admin: 11/22/17 10:02 Dose: 40 mg Piperacillin Sod/Tazobactam (Sod 3.375 gm/ Dextrose) 50 mls @ 100 mls/hr IVPB Q8H-IV [facility]; Protocol Last Admin: 11/23/17 02:55 Dose: 100 mls/hr Insulin Aspart (Novolog Vial Sliding Scale -) 1 vial SQ TIDAC [facility]; Protocol Last Admin: 11/23/17 06:18 Dose: Not Given Insulin Detemir (Levemir Vial) 20 units SQ HS [facility] Last Admin: 11/22/17 21:24 Dose: 20 units Magnesium Oxide (Mag-Ox -) 800 mg PO BID [facility] Stop: 11/23/17 22:01 Ramipril (Altace -) 2.5 mg PO DAILY [facility] Last Admin: 11/22/17 13:02 Dose: 2.5 mg Sitagliptin Phosphate (Januvia -) 100 mg PO DAILY [facility] Last Admin: 11/22/17 13:02 Dose: 100 mg - Objective Vital Signs: Vital Signs Temperature 98.8 F 11/23/17 06:00 Pulse Rate 69 11/23/17 06:00 Respiratory Rate 20 11/23/17 06:00 Blood Pressure 111/62 11/23/17 06:00 O2 Sat by Pulse Oximetry (%) 98 11/22/17 09:00 Constitutional: Yes: No Distress, Calm Cardiovascular: Yes: Regular Rate and Rhythm Respiratory: Yes: Regular, CTA Bilaterally Gastrointestinal: Yes: Normal Bowel Sounds, Soft Musculoskeletal: Yes: WNL Extremities: Yes: WNL Neurological: Yes: Alert, Oriented Psychiatric: Yes: Alert, Oriented Labs: CBC, BMP 11/23/17 07:00 11/23/17 07:00 Assessment/Plan patient with recent uti coming back wiht sepsis ct scan results noted i think the infection is coming from the urinary system patient currently on zosyn Problem List - Problems (1) Sepsis secondary to UTI Code(s): A41.9 - SEPSIS, UNSPECIFIED ORGANISM; N39.0 - URINARY TRACT INFECTION, SITE NOT SPECIFIED (2) T2DM (type 2 diabetes mellitus) Code(s): E11.9 - TYPE 2 DIABETES MELLITUS WITHOUT COMPLICATIONS (3) HTN (hypertension) Code(s): I10 - ESSENTIAL (PRIMARY) HYPERTENSION 4 gm negative bacteremia plan will continue zosyn repeat blood cx send continue monitoring rest a sper the team
--- NOTE | 2017-11-23 11:55 | PN ---
Teaching Attending Note Name of Resident: Tk Flower ATTENDING PHYSICIAN STATEMENT I saw and evaluated the patient. I reviewed the resident's note and discussed the case with the resident. I agree with the resident's findings and plan as documented. SUBJECTIVE: Patient is feeling better. Still with some chills, abdominal/back pain. OBJECTIVE: Vital Signs Period Temp Pulse Resp BP Sys/Conley Pulse Ox Last 24 Hr 98.3 F-98.8 F 69-74 18-20 111-126/52-62 HEART: S1S2, RRR LUNGS: Clear ABDOMEN: Obese, soft, non-tender, non-distended, normal BS EXTREMITIES: No edema Laboratory Results - last 24 hr 11/22/17 11/22/17 11/22/17 12:29 17:50 17:55 WBC RBC Hgb Hct MCV MCH MCHC RDW Plt Count MPV Sodium Potassium Chloride Carbon Dioxide Anion Gap BUN Creatinine Creat Clearance w eGFR POC Glucometer 253 174 181 Random Glucose Calcium Phosphorus Magnesium 11/22/17 11/23/17 11/23/17 21:23 06:17 07:00 WBC 5.7 RBC 3.76 Hgb 11.3 Hct 33.4 MCV 88.9 MCH 30.1 MCHC 33.9 RDW 13.3 Plt Count 168 MPV 10.1 Sodium Potassium Chloride Carbon Dioxide Anion Gap BUN Creatinine Creat Clearance w eGFR POC Glucometer 230 117 Random Glucose Calcium Phosphorus Magnesium 11/23/17 07:00 WBC RBC Hgb Hct MCV MCH MCHC RDW Plt Count MPV Sodium 143 Potassium 3.6 Chloride 110 H Carbon Dioxide 26 Anion Gap 7 L BUN 9 Creatinine 0.6 Creat Clearance w eGFR > 60 POC Glucometer Random Glucose 114 H Calcium 8.0 L Phosphorus 3.7 Magnesium 1.6 L Current Medications Generic Name Dose Route Start Last Admin Trade Name Freq PRN Reason Stop Dose Admin Acetaminophen 650 mg 11/21/17 15:36 11/21/17 23:17 Tylenol - PO 650 mg Q6H PRN Administration FEVER Atorvastatin Calcium 40 mg 11/22/17 22:00 11/22/17 21:25 Lipitor - PO 40 mg HS SLY Administration Enoxaparin Sodium 40 mg 11/22/17 10:00 11/23/17 10:14 Lovenox - SQ 40 mg DAILY SLY Administration Piperacillin Sod/Tazobactam 50 mls @ 100 mls/hr 11/21/17 22:00 11/23/17 10:11 Sod 3.375 gm/ Dextrose IVPB 100 mls/hr Q8H-IV SLY Administration Protocol Insulin Aspart 1 vial 11/21/17 16:30 11/23/17 06:18 Novolog Vial Sliding Scale - SQ Not Given TIDAC [facility] Protocol Insulin Detemir 20 units 11/21/17 22:00 11/22/17 21:24 Levemir Vial SQ 20 units HS SLY Administration Magnesium Oxide 800 mg 11/23/17 10:00 11/23/17 10:11 Mag-Ox - PO 11/23/17 22:01 800 mg BID SLY Administration Ramipril 2.5 mg 11/22/17 11:45 11/23/17 10:14 Altace - PO 2.5 mg DAILY SLY Administration Sitagliptin Phosphate 100 mg 11/22/17 11:30 11/23/17 10:14 Januvia - PO 100 mg DAILY SLY Administration ASSESSMENT AND PLAN: This is a 57 year old woman with a history of HTN, type 2 DM, hyperlipidemia who presented to the ED on 11/21 with fever and chills, was diagnosed with UTI, and called back for positive blood cultures. 1. Sepsis secondary to gram negative UTI and bacteremia - Fever, tachycardia improved - Continue Zosyn - Discontinue IV fluid - Urine, blood cultures growing lactose fermenting gram neg rods 2. Hypomagnesemia - Supplement magnesium 3. HTN - Continue Altace 4. Hyperlipidemia - Continue Lipitor 5. Type 2 DM - Continue Januvia, Levemir, Novolog sliding scale
--- NOTE | 2017-11-23 12:10 | PN ---
Physical Exam: SUBJECTIVE: Patient seen and examined at bedside afebrile complains of mild left sided back pain but improved complains of occasional chills but that has also improved as well. OBJECTIVE: Vital Signs Period Temp Pulse Resp BP Sys/Conley Pulse Ox Last 24 Hr 98.3 F-98.8 F 69-74 16-20 111-126/52-62 98 GENERAL: The patient is awake, alert, and fully oriented, in no acute distress. HEAD: Normal with no signs of trauma. ENT: moist mucous membranes. NECK: Trachea midline, full range of motion LUNGS: Breath sounds equal, clear to auscultation bilaterally HEART: Regular rate and rhythm, S1, S2 without murmur ABDOMEN: Soft, nontender, nondistended, no suprapubic tenderness. Mile left sided CVA tenderness improved from yesterday EXTREMITIES: warm, well-perfused, no edema. NEUROLOGICAL: Cranial nerves II through XII grossly intact PSYCH: Normal mood, normal affect. SKIN: Warm, dry, normal turgor Laboratory Results - last 24 hr 11/22/17 11/22/17 11/22/17 12:29 17:50 17:55 WBC RBC Hgb Hct MCV MCH MCHC RDW Plt Count MPV Sodium Potassium Chloride Carbon Dioxide Anion Gap BUN Creatinine Creat Clearance w eGFR POC Glucometer 253 174 181 Random Glucose Calcium Phosphorus Magnesium 11/22/17 11/23/17 11/23/17 21:23 06:17 07:00 WBC 5.7 RBC 3.76 Hgb 11.3 Hct 33.4 MCV 88.9 MCH 30.1 MCHC 33.9 RDW 13.3 Plt Count 168 MPV 10.1 Sodium Potassium Chloride Carbon Dioxide Anion Gap BUN Creatinine Creat Clearance w eGFR POC Glucometer 230 117 Random Glucose Calcium Phosphorus Magnesium 11/23/17 07:00 WBC RBC Hgb Hct MCV MCH MCHC RDW Plt Count MPV Sodium 143 Potassium 3.6 Chloride 110 H Carbon Dioxide 26 Anion Gap 7 L BUN 9 Creatinine 0.6 Creat Clearance w eGFR > 60 POC Glucometer Random Glucose 114 H Calcium 8.0 L Phosphorus 3.7 Magnesium 1.6 L Active Medications Generic Name Dose Route Start Last Admin Trade Name Freq PRN Reason Stop Dose Admin Acetaminophen 650 mg 11/21/17 15:36 11/21/17 23:17 Tylenol - PO 650 mg Q6H PRN Administration FEVER Atorvastatin Calcium 40 mg 11/22/17 22:00 11/22/17 21:25 Lipitor - PO 40 mg HS SLY Administration Enoxaparin Sodium 40 mg 11/22/17 10:00 11/23/17 10:14 Lovenox - SQ 40 mg DAILY SLY Administration Piperacillin Sod/Tazobactam 50 mls @ 100 mls/hr 11/21/17 22:00 11/23/17 10:11 Sod 3.375 gm/ Dextrose IVPB 100 mls/hr Q8H-IV SLY Administration Protocol Insulin Aspart 1 vial 11/21/17 16:30 11/23/17 06:18 Novolog Vial Sliding Scale - SQ Not Given TIDAC [facility] Protocol Insulin Detemir 20 units 11/21/17 22:00 11/22/17 21:24 Levemir Vial SQ 20 units HS SLY Administration Magnesium Oxide 800 mg 11/23/17 10:00 11/23/17 10:11 Mag-Ox - PO 11/23/17 22:01 800 mg BID SLY Administration Ramipril 2.5 mg 11/22/17 11:45 11/23/17 10:14 Altace - PO 2.5 mg DAILY SLY Administration Sitagliptin Phosphate 100 mg 11/22/17 11:30 11/23/17 10:14 Januvia - PO 100 mg DAILY SLY Administration ASSESSMENT/PLAN: 57F with PMH of HTN, HLD, and DM called back to the hospital after blood and urine cultures are positive for lactose fermenting GNB. Cultures were originally taken in the ED and patient discharged with ABx. Sepsis: Patient has a UTI which has translocated to bacteremia. CT scan shows thickened urinary bladder. F/u BCx for speciation and sensitivities pending f/u UCx for speciation and sensitivities pending ID consult azppreciated-discussed with Dr. Grewal. Continue Zosyn monitor fever curve antipyretics PRN repeat cultures to assess clearance ordered for tomorrow AM per ID DM: Patient seems uncontrolled at home HbA1C 10.4 Patient did not know her dose of insulin Pharmacy called patient on Metformin Januvia Novolog 10units TIDAC on levemir 18units HS at home Continue levemir 20 units continue januvia hold metformin ISS BGM TIDAC and HS HTN: ramipril 2.5mg po daily HLD: Continue Lipitor 40mg po HS FEN: stop IVF hypokalemia and hypomagnesemia-replete diabetic diet PPx: Lovenox Pharmacy called and medications reconciled Case discussed with Dr. Cantu Visit type - Emergency Visit Emergency Visit: Yes ED Registration Date: 11/21/17 Care time: The patient presented to the Emergency Department on the above date and was hospitalized for further evaluation of their emergent condition. - New Patient This patient is new to me today: No - Critical Care Critical Care patient: No
[2017-11-23] MEDS ORDERED: INSULIN (NOVOLOG) ASPART 100 UNITS/ML 10ML VIAL ONE (20:24)
[2017-11-23] MEDS: ATORVASTATIN CA 40 MG TABLET (FP) PO SCH (21:51)
[2017-11-23] MEDS: INSULIN (LEVEMIR) 100 UNITS/ML UNITS SQ SCH (21:53)
[2017-11-24] MEDS: PIPERACILLIN/TAZOB 3.375 GM 3.375 GM in DEXTROSE 5%-WATER - 50 ML IVPB SCH ×3 (02:43→18:01)
[2017-11-24] MEDS: INSULIN SLIDING SCALE (NOVOLOG) 1 VIAL SQ SCH ×3 (06:01→18:02)
[2017-11-24] MEDS ORDERED: IBUPROFEN 400 MG TABLET (FP) PO PRN (07:02)
[2017-11-24 07:12] LABS: HEMOGLOBIN 11.6 GM/dL (10.7-15.3); MCH 30.4 pg (25.7-33.7); MCHC 34.2 g/dl (32.0-36.0); MEAN CELL VOLUME 88.9 fl (80-96); MEAN PLT VOLUME 9.9 fl (7.5-11.1); PLATELET COUNT 195 K/MM3 (134-434); RBC 3.82 M/mm3 (3.60-5.2)
[2017-11-24] MEDS ORDERED: sitaGLIPtin PHOSPHATE 100 MG TABLET (FP) PO SCH (07:15)
[2017-11-24 07:34] LABS: ANION GAP 4 MMOL/L (8-16); BLOOD UREA NITROGEN 10 mg/dL (7-18); CALCIUM 8.4 mg/dL (8.5-10.1); CHLORIDE 109 mmol/L (98-107); CO2 30 mmol/L (21-32); CREATININE 0.6 mg/dL (0.55-1.3); GLUCOSE,RANDOM 156 mg/dL (74-106); MAGNESIUM 1.7 mg/dL (1.8-2.4); PHOSPHOROUS 4.1 mg/dL (2.5-4.9); SODIUM 143 mmol/L (136-145)
[2017-11-24] MEDS ORDERED: SODIUM CHLORIDE 1,000 ML IV STA (08:20)
[2017-11-24] MEDS: sitaGLIPtin PHOSPHATE 50 MG TABLET PO SCH (08:47)
--- NOTE | 2017-11-24 09:20 | PN ---
Progress Note, Physician Chief Complaint: doing well abd pain resolved - Current Medication List Current Medications: Active Medications Acetaminophen (Tylenol -) 650 mg PO Q6H PRN PRN Reason: FEVER Last Admin: 11/21/17 23:17 Dose: 650 mg Atorvastatin Calcium (Lipitor -) 40 mg PO HS [facility] Last Admin: 11/23/17 21:51 Dose: 40 mg Enoxaparin Sodium (Lovenox -) 40 mg SQ DAILY [facility] Last Admin: 11/23/17 10:14 Dose: 40 mg Piperacillin Sod/Tazobactam (Sod 3.375 gm/ Dextrose) 50 mls @ 100 mls/hr IVPB Q8H-IV [facility]; Protocol Last Admin: 11/24/17 02:43 Dose: 100 mls/hr Ibuprofen (Motrin -) 400 mg PO Q6H PRN PRN Reason: Fever or pain Last Admin: 11/24/17 08:08 Dose: 400 mg Insulin Aspart (Novolog Vial Sliding Scale -) 1 vial SQ TIDAC [facility]; Protocol Last Admin: 11/24/17 06:01 Dose: 2 unit Insulin Detemir (Levemir Vial) 20 units SQ [facility] Last Admin: 11/23/17 21:53 Dose: 20 units Ramipril (Altace -) 2.5 mg PO DAILY [facility] Last Admin: 11/23/17 10:14 Dose: 2.5 mg Sitagliptin Phosphate (Januvia -) 100 mg PO DAILY@0700 [facility] Last Admin: 11/24/17 08:47 Dose: 100 mg - Objective Vital Signs: Vital Signs Temperature 98.4 F 11/24/17 06:42 Pulse Rate 69 11/24/17 06:42 Respiratory Rate 20 11/24/17 06:42 Blood Pressure 119/70 11/24/17 06:42 O2 Sat by Pulse Oximetry (%) 98 11/23/17 21:00 Constitutional: Yes: No Distress, Calm Cardiovascular: Yes: Regular Rate and Rhythm Respiratory: Yes: Regular, CTA Bilaterally Gastrointestinal: Yes: Normal Bowel Sounds, Soft Musculoskeletal: Yes: WNL Extremities: Yes: WNL Neurological: Yes: Alert, Oriented Psychiatric: Yes: Alert, Oriented Labs: CBC, BMP 11/24/17 06:30 11/24/17 06:30 Assessment/Plan patient with recent uti coming back wiht sepsis ct scan results noted i think the infection is coming from the urinary system patient currently on zosyn Problem List - Problems (1) Sepsis secondary to UTI Code(s): A41.9 - SEPSIS, UNSPECIFIED ORGANISM; N39.0 - URINARY TRACT INFECTION, SITE NOT SPECIFIED (2) T2DM (type 2 diabetes mellitus) Code(s): E11.9 - TYPE 2 DIABETES MELLITUS WITHOUT COMPLICATIONS (3) HTN (hypertension) Code(s): I10 - ESSENTIAL (PRIMARY) HYPERTENSION 4 gm negative bacteremia plan continue zosyn cx report noted await for repeat blood cx rest continue current mgmt
--- NOTE | 2017-11-24 09:31 | PN ---
Physical Exam: SUBJECTIVE: Patient seen and examined at bedside complains of minor pain in her hands and feet complaining of great toe pain bilaterally from ingrown toe nails per patient one episode of hypotension this AM upon wakening - immediately went to check on patient and she was sitting up in bed eating breakfast and laughing complains of minor headache and wants Advil OBJECTIVE: Vital Signs Period Temp Pulse Resp BP Sys/Conley Pulse Ox Last 24 Hr 98.0 F-98.4 F 65-69 18-20 88-135/45-75 98 GENERAL: The patient is awake, alert, and fully oriented, in no acute distress. HEAD: Normal with no signs of trauma. ENT: moist mucous membranes. NECK: Trachea midline, full range of motion LUNGS: Breath sounds equal, clear to auscultation bilaterally HEART: Regular rate and rhythm, S1, S2 without murmur ABDOMEN: Soft, nontender, nondistended, no suprapubic tenderness. No CVA tenderness EXTREMITIES: warm, well-perfused, no edema.bilateral great toes tender with possible ingrown toe nail NEUROLOGICAL: Cranial nerves II through XII grossly intact PSYCH: Normal mood, normal affect. SKIN: Warm, dry, normal turgor Laboratory Results - last 24 hr 11/23/17 11/23/17 11/23/17 12:20 17:03 21:52 WBC RBC Hgb Hct MCV MCH MCHC RDW Plt Count MPV Sodium Potassium Chloride Carbon Dioxide Anion Gap BUN Creatinine Creat Clearance w eGFR POC Glucometer 200 228 286 Random Glucose Calcium Phosphorus Magnesium 11/24/17 11/24/17 11/24/17 06:00 06:30 06:30 WBC 5.0 RBC 3.82 Hgb 11.6 Hct 34.0 MCV 88.9 MCH 30.4 MCHC 34.2 RDW 13.0 Plt Count 195 MPV 9.9 Sodium 143 Potassium 4.0 Chloride 109 H Carbon Dioxide 30 Anion Gap 4 L BUN 10 Creatinine 0.6 Creat Clearance w eGFR > 60 POC Glucometer 170 Random Glucose 156 H Calcium 8.4 L Phosphorus 4.1 Magnesium 1.7 L Active Medications Generic Name Dose Route Start Last Admin Trade Name Freq PRN Reason Stop Dose Admin Acetaminophen 650 mg 11/21/17 15:36 11/21/17 23:17 Tylenol - PO 650 mg Q6H PRN Administration FEVER Atorvastatin Calcium 40 mg 11/22/17 22:00 11/23/17 21:51 Lipitor - PO 40 mg HS SLY Administration Enoxaparin Sodium 40 mg 11/22/17 10:00 11/23/17 10:14 Lovenox - SQ 40 mg DAILY SLY Administration Piperacillin Sod/Tazobactam 50 mls @ 100 mls/hr 11/21/17 22:00 11/24/17 02:43 Sod 3.375 gm/ Dextrose IVPB 100 mls/hr Q8H-IV SLY Administration Protocol Ibuprofen 400 mg 11/24/17 07:02 11/24/17 08:08 Motrin - PO 400 mg Q6H PRN Administration Fever or pain Insulin Aspart 1 vial 11/21/17 16:30 11/24/17 06:01 Novolog Vial Sliding Scale - SQ 2 unit TIDAC SLY Administration Protocol Insulin Detemir 20 units 11/21/17 22:00 11/23/17 21:53 Levemir Vial SQ 20 units HS SLY Administration Ramipril 2.5 mg 11/22/17 11:45 11/23/17 10:14 Altace - PO 2.5 mg DAILY SLY Administration Sitagliptin Phosphate 100 mg 11/24/17 08:42 11/24/17 08:47 Januvia - PO 100 mg DAILY@0700 SLY Administration ASSESSMENT/PLAN: 57F with PMH of HTN, HLD, and DM called back to the hospital after blood and urine cultures are positive for lactose fermenting GNB. Cultures were originally taken in the ED and patient discharged with ABx. Sepsis: Patient has a UTI which has translocated to bacteremia. CT scan shows thickened urinary bladder. F/u BCx - sensitive E. coli f/u UCx - Sensitive E. Coli ID consult appreciated Continue Zosyn for now could likely deescalate to cefazolin monitor fever curve antipyretics PRN repeat cultures to assess for clearance drawn today - pending DM: Patient seems uncontrolled at home HbA1C 10.4-Patient needs to be better controlled as an outpatient counselled about diet and exercise and following up with her PMD patient on Metformin Januvia Novolog 10units TIDAC on levemir 18units HS at home Continue levemir 20 units continue januvia hold metformin ISS BGM TIDAC and HS HTN: ramipril 2.5mg po daily HLD: Continue Lipitor 40mg po HS Ingrown toe nails: Will consult podiatry for debridement FEN: Bolus 1 liter IVF hypokalemia and hypomagnesemia-replete diabetic diet PPx: Lovenox Case discussed with Dr. Cantu Visit type - Emergency Visit Emergency Visit: Yes ED Registration Date: 11/21/17 Care time: The patient presented to the Emergency Department on the above date and was hospitalized for further evaluation of their emergent condition. - New Patient This patient is new to me today: No - Critical Care Critical Care patient: No
[2017-11-24] MEDS ORDERED: DEXTROSE 5%-WATER - 50 ML IVPB ONE ×2 (11:13→17:53)
[2017-11-24] MEDS ORDERED: PIPERACILLIN/TAZOBACTAM 3.375 GM VIAL IVPB ONE ×2 (11:13→17:52)
[2017-11-24] MEDS ORDERED: PT OWN MED DRAWER 7, Y5N ONE (11:15)
--- NOTE | 2017-11-24 11:15 | PN ---
Teaching Attending Note Name of Resident: Tk Flower ATTENDING PHYSICIAN STATEMENT I saw and evaluated the patient. I reviewed the resident's note and discussed the case with the resident. I agree with the resident's findings and plan as documented. SUBJECTIVE: Patient has no complaints. BP 88/57 this morning, improved with IV fluid. OBJECTIVE: Vital Signs Period Temp Pulse Resp BP Sys/Conley Pulse Ox Last 24 Hr 98.0 F-98.4 F 65-69 18-20 88-135/45-75 98 HEART: S1S2, RRR LUNGS: Clear ABDOMEN: Obese, soft, non-tender, non-distended, normal BS EXTREMITIES: No edema Laboratory Results - last 24 hr 11/23/17 11/23/17 11/23/17 12:20 17:03 21:52 WBC RBC Hgb Hct MCV MCH MCHC RDW Plt Count MPV Sodium Potassium Chloride Carbon Dioxide Anion Gap BUN Creatinine Creat Clearance w eGFR POC Glucometer 200 228 286 Random Glucose Calcium Phosphorus Magnesium 11/24/17 11/24/17 11/24/17 06:00 06:30 06:30 WBC 5.0 RBC 3.82 Hgb 11.6 Hct 34.0 MCV 88.9 MCH 30.4 MCHC 34.2 RDW 13.0 Plt Count 195 MPV 9.9 Sodium 143 Potassium 4.0 Chloride 109 H Carbon Dioxide 30 Anion Gap 4 L BUN 10 Creatinine 0.6 Creat Clearance w eGFR > 60 POC Glucometer 170 Random Glucose 156 H Calcium 8.4 L Phosphorus 4.1 Magnesium 1.7 L Current Medications Generic Name Dose Route Start Last Admin Trade Name Freq PRN Reason Stop Dose Admin Acetaminophen 650 mg 11/21/17 15:36 11/21/17 23:17 Tylenol - PO 650 mg Q6H PRN Administration FEVER Atorvastatin Calcium 40 mg 11/22/17 22:00 11/23/17 21:51 Lipitor - PO 40 mg HS LSY Administration Enoxaparin Sodium 40 mg 11/22/17 10:00 11/23/17 10:14 Lovenox - SQ 40 mg DAILY SLY Administration Piperacillin Sod/Tazobactam 50 mls @ 100 mls/hr 11/21/17 22:00 11/24/17 02:43 Sod 3.375 gm/ Dextrose IVPB 100 mls/hr Q8H-IV SLY Administration Protocol Ibuprofen 400 mg 11/24/17 07:02 11/24/17 08:08 Motrin - PO 400 mg Q6H PRN Administration Fever or pain Insulin Aspart 1 vial 11/21/17 16:30 11/24/17 06:01 Novolog Vial Sliding Scale - SQ 2 unit TIDAC SLY Administration Protocol Insulin Detemir 20 units 11/21/17 22:00 11/23/17 21:53 Levemir Vial SQ 20 units HS SLY Administration Ramipril 2.5 mg 11/22/17 11:45 11/23/17 10:14 Altace - PO 2.5 mg DAILY SLY Administration Sitagliptin Phosphate 100 mg 11/24/17 08:42 11/24/17 08:47 Januvia - PO 100 mg DAILY@0700 SLY Administration ASSESSMENT AND PLAN: This is a 57 year old woman with a history of HTN, type 2 DM, hyperlipidemia who presented to the ED on 11/21 with fever and chills, was diagnosed with UTI, and called back for positive blood cultures. 1. Sepsis secondary to E. coli UTI and bacteremia - Fever, tachycardia improved - Continue Zosyn - Discontinue IV fluid - Urine, blood cultures (11/21) growing E. coli - Blood cultures repeated this morning 2. Hypomagnesemia - Continue to supplement magnesium 3. HTN - Continue Altace 4. Hyperlipidemia - Continue Lipitor 5. Type 2 DM - Continue Januvia, Levemir, Novolog sliding scale 6. Obesity with BMI 31.8
[2017-11-24] MEDS: ENOXAPARIN NA (PORCINE) 40 MG/0.4 ML DISP.SYRIN SQ SCH (11:21)
[2017-11-24] MEDS ORDERED: INSULIN (NOVOLOG) ASPART 100 UNITS/ML 10ML VIAL ONE ×2 (11:46→18:48)
[2017-11-24] MEDS: RAMIPRIL 2.5 MG CAPSULE (FP) PO SCH (13:09)
--- NOTE | 2017-11-24 18:56 | CONSULT ---
Consult Consult Specialty:: podiatry Reason for Consultation:: Painful mycotic nails in shoe gear and ambulation. - History of Present Illness Chief Complaint: Painful mycotic nails with subungual debris - History Source History Provided By: Patient, Family Member - Past Medical History Cardio/Vascular: Yes: HTN, Hyperlipdemia Endocrine: Yes: Diabetes Insipidus - Past Surgical History Past Surgical History: Yes: None - Alcohol/Substance Use Hx Alcohol Use: No - Smoking History Smoking history: Never smoked Have you smoked in the past 12 months: No Home Medications - Allergies Allergies/Adverse Reactions: Allergies Allergy/AdvReac Type Severity Reaction Status Date / Time No Known Allergies Allergy Verified 11/21/17 14:46 - Home Medications Home Medications: Ambulatory Orders Insulin (LOG) Aspart [NovoLOG -] 10 units SQ TID 11/21/17 Levofloxacin [Levaquin] 750 mg PO DAILY #7 tablet 11/21/17 Atorvastatin Ca [Lipitor] 40 mg PO HS 11/22/17 Ergocalciferol [Vitamin D2] 50,000 unit PO Q7D@1000 11/22/17 Insulin Detemir [Levemir Flextouch] 18 unit SQ HS 11/22/17 Metformin HCl [Glucophage] 1,000 mg PO BID 11/22/17 Ramipril 2.5 mg PO DAILY 11/22/17 Sitagliptin Phosphate [Januvia] 100 mg PO DAILY 11/22/17 Family Disease History - Family Disease History Family Disease History: Diabetes: Father, Mother Physical Exam Vital Signs: Vital Signs Temperature 98.6 F 11/24/17 17:13 Pulse Rate 70 11/24/17 17:13 Respiratory Rate 20 11/24/17 17:13 Blood Pressure 113/67 11/24/17 17:13 O2 Sat by Pulse Oximetry (%) 98 11/24/17 09:00 Extremities: Yes: Other (mycotic hypertrophic nails x 10 with subungual debris, +tender) Labs: CBC, BMP 11/24/17 06:30 11/24/17 06:30 Assessment/Plan onychomycosis pain Foot care q8 weeks. Patient does not have a gate services supervisor out patient. Will refer to one. Debride tomorrow. will follow. Family present throughout visit.
[2017-11-24] MEDS: ATORVASTATIN CA 40 MG TABLET (FP) PO SCH (21:39)
[2017-11-24] MEDS: INSULIN (LEVEMIR) 100 UNITS/ML UNITS SQ SCH (21:41)
[2017-11-25] MEDS ORDERED: PIPERACILLIN/TAZOBACTAM 3.375 GM VIAL IVPB ONE ×4 (01:08→23:17)
[2017-11-25] MEDS ORDERED: DEXTROSE 5%-WATER - 50 ML IVPB ONE ×4 (01:08→23:17)
[2017-11-25] MEDS: PIPERACILLIN/TAZOB 3.375 GM 3.375 GM in DEXTROSE 5%-WATER - 50 ML IVPB SCH ×3 (01:22→17:11)
[2017-11-25] MEDS: sitaGLIPtin PHOSPHATE 50 MG TABLET PO SCH (06:40)
[2017-11-25] MEDS: INSULIN SLIDING SCALE (NOVOLOG) 1 VIAL SQ SCH ×3 (06:41→16:43)
--- NOTE | 2017-11-25 08:56 | PN ---
Progress Note, Physician History of Present Illness: stable no complaints - Current Medication List Current Medications: Active Medications Acetaminophen (Tylenol -) 650 mg PO Q6H PRN PRN Reason: FEVER Last Admin: 11/21/17 23:17 Dose: 650 mg Atorvastatin Calcium (Lipitor -) 40 mg PO HS [facility] Last Admin: 11/24/17 21:39 Dose: 40 mg Enoxaparin Sodium (Lovenox -) 40 mg SQ DAILY [facility] Last Admin: 11/24/17 11:21 Dose: 40 mg Piperacillin Sod/Tazobactam (Sod 3.375 gm/ Dextrose) 50 mls @ 100 mls/hr IVPB Q8H-IV [facility]; Protocol Last Admin: 11/25/17 01:22 Dose: 100 mls/hr Ibuprofen (Motrin -) 400 mg PO Q6H PRN PRN Reason: Fever or pain Last Admin: 11/24/17 08:08 Dose: 400 mg Insulin Aspart (Novolog Vial Sliding Scale -) 1 vial SQ TIDAC [facility]; Protocol Last Admin: 11/25/17 06:41 Dose: Not Given Insulin Detemir (Levemir Vial) 20 units SQ [facility] Last Admin: 11/24/17 21:41 Dose: 20 units Ramipril (Altace -) 2.5 mg PO DAILY [facility] Last Admin: 11/24/17 13:09 Dose: Not Given Sitagliptin Phosphate (Januvia -) 100 mg PO DAILY@0700 [facility] Last Admin: 11/25/17 06:40 Dose: 100 mg - Objective Vital Signs: Vital Signs Temperature 98.2 F 11/25/17 06:00 Pulse Rate 65 11/25/17 06:00 Respiratory Rate 18 11/25/17 06:00 Blood Pressure 133/74 11/25/17 06:00 O2 Sat by Pulse Oximetry (%) 100 11/24/17 21:00 Constitutional: Yes: No Distress, Calm Cardiovascular: Yes: Regular Rate and Rhythm Respiratory: Yes: Regular, CTA Bilaterally Gastrointestinal: Yes: Normal Bowel Sounds, Soft Musculoskeletal: Yes: WNL Extremities: Yes: WNL Neurological: Yes: Alert, Oriented Psychiatric: Yes: Alert, Oriented Labs: CBC, BMP 11/24/17 06:30 11/24/17 06:30 Assessment/Plan patient with recent uti coming back wiht sepsis ct scan results noted i think the infection is coming from the urinary system patient currently on zosyn Problem List - Problems (1) Sepsis secondary to UTI Code(s): A41.9 - SEPSIS, UNSPECIFIED ORGANISM; N39.0 - URINARY TRACT INFECTION, SITE NOT SPECIFIED (2) T2DM (type 2 diabetes mellitus) Code(s): E11.9 - TYPE 2 DIABETES MELLITUS WITHOUT COMPLICATIONS (3) HTN (hypertension) Code(s): I10 - ESSENTIAL (PRIMARY) HYPERTENSION 4 gm negative bacteremia plan continue zosyn cx report noted cx reports negative if cx negative complete 5 days of treatment and then stop it
[2017-11-25] MEDS ORDERED: PT OWN MED DRAWER 7, Y5N ONE (09:53)
[2017-11-25] MEDS: RAMIPRIL 2.5 MG CAPSULE (FP) PO SCH (09:57)
[2017-11-25] MEDS: ENOXAPARIN NA (PORCINE) 40 MG/0.4 ML DISP.SYRIN SQ SCH (09:57)
--- NOTE | 2017-11-25 11:26 | PN ---
Teaching Attending Note Name of Resident: Tk Flower ATTENDING PHYSICIAN STATEMENT I saw and evaluated the patient. I reviewed the resident's note and discussed the case with the resident. I agree with the resident's findings and plan as documented. SUBJECTIVE: Patient has no complaints. OBJECTIVE: Vital Signs Period Temp Pulse Resp BP Sys/Conley Pulse Ox Last 24 Hr 97.3 F-98.6 F 65-70 16-20 97-133/67-74 100 HEART: S1S2, RRR LUNGS: Clear ABDOMEN: Obese, soft, non-tender, non-distended, normal BS EXTREMITIES: No edema Laboratory Results - last 24 hr 11/24/17 11/24/17 11/24/17 11:43 18:02 21:06 POC Glucometer 204 182 317 11/25/17 06:40 POC Glucometer 147 Current Medications Generic Name Dose Route Start Last Admin Trade Name Freq PRN Reason Stop Dose Admin Acetaminophen 650 mg 11/21/17 15:36 11/21/17 23:17 Tylenol - PO 650 mg Q6H PRN Administration FEVER Atorvastatin Calcium 40 mg 11/22/17 22:00 11/24/17 21:39 Lipitor - PO 40 mg HS SLY Administration Enoxaparin Sodium 40 mg 11/22/17 10:00 11/25/17 09:57 Lovenox - SQ 40 mg DAILY SLY Administration Piperacillin Sod/Tazobactam 50 mls @ 100 mls/hr 11/21/17 22:00 11/25/17 09:57 Sod 3.375 gm/ Dextrose IVPB 100 mls/hr Q8H-IV SLY Administration Protocol Ibuprofen 400 mg 11/24/17 07:02 11/24/17 08:08 Motrin - PO 400 mg Q6H PRN Administration Fever or pain Insulin Aspart 1 vial 11/21/17 16:30 11/25/17 06:41 Novolog Vial Sliding Scale - SQ Not Given TIDAC [facility] Protocol Insulin Detemir 20 units 11/21/17 22:00 11/24/17 21:41 Levemir Vial SQ 20 units HS SLY Administration Ramipril 2.5 mg 11/22/17 11:45 11/25/17 09:57 Altace - PO 2.5 mg DAILY SLY Administration Sitagliptin Phosphate 100 mg 11/24/17 08:42 11/25/17 06:40 Januvia - PO 100 mg DAILY@0700 SLY Administration ASSESSMENT AND PLAN: This is a 57 year old woman with a history of HTN, type 2 DM, hyperlipidemia who presented to the ED on 11/21 with fever and chills, was diagnosed with UTI, and called back for positive blood cultures. 1. Sepsis secondary to E. coli UTI and bacteremia - Urine, blood cultures (11/21) growing E. coli - Blood cultures (11/24) negative after 24 hours - Plan to treat with Zosyn x 5 days 2. Hypomagnesemia - Supplement magnesium as needed 3. HTN - Continue Altace 4. Hyperlipidemia - Continue Lipitor 5. Type 2 DM - Continue Januvia, Levemir, Novolog sliding scale 6. Onychomycosis of all nails of both feet - Podiatry input appreciated - for debridement today 7. Obesity with BMI 31.8
--- NOTE | 2017-11-25 11:45 | PN ---
Physical Exam: SUBJECTIVE: Patient seen and examined at bedside no issues overnight feels well attempted to reach her at patient's request to update him but could not reach him seen by podiatry and will have toes debrided today asymptomatic and afebrile OBJECTIVE: Vital Signs Period Temp Pulse Resp BP Sys/Conley Pulse Ox Last 24 Hr 97.3 F-98.6 F 65-70 16-20 97-133/67-74 100 GENERAL: The patient is awake, alert, and fully oriented, in no acute distress. HEAD: Normal with no signs of trauma. ENT: moist mucous membranes. NECK: Trachea midline, full range of motion LUNGS: Breath sounds equal, clear to auscultation bilaterally HEART: Regular rate and rhythm, S1, S2 without murmur ABDOMEN: Soft, nontender, nondistended, no suprapubic tenderness. No CVA tenderness EXTREMITIES: warm, well-perfused, no edema.bilateral great toes tender with possible ingrown toe nail NEUROLOGICAL: Cranial nerves II through XII grossly intact PSYCH: Normal mood, normal affect. SKIN: Warm, dry, normal turgor Laboratory Results - last 24 hr 11/24/17 11/24/17 11/24/17 11:43 18:02 21:06 POC Glucometer 204 182 317 11/25/17 06:40 POC Glucometer 147 Active Medications Generic Name Dose Route Start Last Admin Trade Name Freq PRN Reason Stop Dose Admin Acetaminophen 650 mg 11/21/17 15:36 11/21/17 23:17 Tylenol - PO 650 mg Q6H PRN Administration FEVER Atorvastatin Calcium 40 mg 11/22/17 22:00 11/24/17 21:39 Lipitor - PO 40 mg HS SLY Administration Enoxaparin Sodium 40 mg 11/22/17 10:00 11/25/17 09:57 Lovenox - SQ 40 mg DAILY SLY Administration Piperacillin Sod/Tazobactam 50 mls @ 100 mls/hr 11/21/17 22:00 11/25/17 09:57 Sod 3.375 gm/ Dextrose IVPB 100 mls/hr Q8H-IV SLY Administration Protocol Ibuprofen 400 mg 11/24/17 07:02 11/24/17 08:08 Motrin - PO 400 mg Q6H PRN Administration Fever or pain Insulin Aspart 1 vial 11/21/17 16:30 11/25/17 11:38 Novolog Vial Sliding Scale - SQ 4 units TIDAC SLY Administration Protocol Insulin Detemir 20 units 11/21/17 22:00 11/24/17 21:41 Levemir Vial SQ 20 units HS SLY Administration Ramipril 2.5 mg 11/22/17 11:45 11/25/17 09:57 Altace - PO 2.5 mg DAILY SLY Administration Sitagliptin Phosphate 100 mg 11/24/17 08:42 11/25/17 06:40 Januvia - PO 100 mg DAILY@0700 SLY Administration ASSESSMENT/PLAN: 57F with PMH of HTN, HLD, and DM called back to the hospital after blood and urine cultures are positive for lactose fermenting GNB. Cultures were originally taken in the ED and patient discharged with ABx. Sepsis: Patient has a UTI which has translocated to bacteremia. CT scan shows thickened urinary bladder. F/u BCx - sensitive E. coli f/u UCx - Sensitive E. Coli ID consult appreciated ID would like to continue Zosyn until Wednesday morning and discharge patient monitor fever curve antipyretics PRN repeat cultures to assess for clearance drawn today - NGTD DM: Patient seems uncontrolled at home HbA1C 10.4-Patient needs to be better controlled as an outpatient counselled about diet and exercise and following up with her PMD patient on Metformin Januvia Novolog 10units TIDAC on levemir 18units HS at home Continue levemir 20 units continue januvia hold metformin ISS BGM TIDAC and HS HTN: ramipril 2.5mg po daily HLD: Continue Lipitor 40mg po HS Ingrown toe nails: Will consult podiatry for debridement-to be debrided today seen by podiatry yesterday FEN: no IVF no electrolyte issues diabetic diet PPx: Lovenox Case discussed with Dr. Cantu Visit type - Emergency Visit Emergency Visit: Yes ED Registration Date: 11/21/17 Care time: The patient presented to the Emergency Department on the above date and was hospitalized for further evaluation of their emergent condition. - New Patient This patient is new to me today: No - Critical Care Critical Care patient: No
[2017-11-25] MEDS: ATORVASTATIN CA 40 MG TABLET (FP) PO SCH (21:36)
[2017-11-25] MEDS: INSULIN (LEVEMIR) 100 UNITS/ML UNITS SQ SCH (21:37)
--- NOTE | 2017-11-25 23:09 | PN ---
Progress Note (short form) - Note Progress Note: Patient seen in bed. vss +tender dystrophic mycotic nails b/l feet x 10 onychomycosis debride nails x10. foot care q 8 weeks.
[2017-11-26] MEDS: PIPERACILLIN/TAZOB 3.375 GM 3.375 GM in DEXTROSE 5%-WATER - 50 ML IVPB SCH ×3 (02:30→17:14)
[2017-11-26] MEDS: INSULIN SLIDING SCALE (NOVOLOG) 1 VIAL SQ SCH ×3 (06:16→17:14)
[2017-11-26] MEDS: sitaGLIPtin PHOSPHATE 50 MG TABLET PO SCH (06:16)
[2017-11-26 07:00] LABS: ANION GAP 4 MMOL/L (8-16); BLOOD UREA NITROGEN 16 mg/dL (7-18); CALCIUM 8.7 mg/dL (8.5-10.1); CHLORIDE 109 mmol/L (98-107); CO2 28 mmol/L (21-32); CREATININE 0.7 mg/dL (0.55-1.3); GLUCOSE,RANDOM 187 mg/dL (74-106); MAGNESIUM 1.6 mg/dL (1.8-2.4); POTASSIUM 3.9 mmol/L (3.5-5.1); SODIUM 141 mmol/L (136-145)
--- NOTE | 2017-11-26 08:04 | PN ---
Progress Note, Physician History of Present Illness: stable no complaints says she had some chills - Current Medication List Current Medications: Active Medications Acetaminophen (Tylenol -) 650 mg PO Q6H PRN PRN Reason: FEVER Last Admin: 11/21/17 23:17 Dose: 650 mg Atorvastatin Calcium (Lipitor -) 40 mg PO HS [facility] Last Admin: 11/25/17 21:36 Dose: 40 mg Enoxaparin Sodium (Lovenox -) 40 mg SQ DAILY [facility] Last Admin: 11/25/17 09:57 Dose: 40 mg Piperacillin Sod/Tazobactam (Sod 3.375 gm/ Dextrose) 50 mls @ 100 mls/hr IVPB Q8H-IV [facility]; Protocol Last Admin: 11/26/17 02:30 Dose: 100 mls/hr Ibuprofen (Motrin -) 400 mg PO Q6H PRN PRN Reason: Fever or pain Last Admin: 11/24/17 08:08 Dose: 400 mg Insulin Aspart (Novolog Vial Sliding Scale -) 1 vial SQ TIDAC [facility]; Protocol Last Admin: 11/26/17 06:16 Dose: 2 units Insulin Detemir (Levemir Vial) [address] [facility] Last Admin: 11/25/17 21:37 Dose: 20 units Ramipril (Altace -) 2.5 mg PO DAILY [facility] Last Admin: 11/25/17 09:57 Dose: 2.5 mg Sitagliptin Phosphate (Januvia -) 100 mg PO DAILY@0700 [facility] Last Admin: 11/26/17 06:16 Dose: 100 mg - Objective Vital Signs: Vital Signs Temperature 98.3 F 11/26/17 06:00 Pulse Rate 67 11/26/17 06:00 Respiratory Rate 18 11/26/17 06:00 Blood Pressure 114/64 11/26/17 06:00 O2 Sat by Pulse Oximetry (%) 98 11/25/17 21:00 Constitutional: Yes: No Distress, Calm Cardiovascular: Yes: Regular Rate and Rhythm Respiratory: Yes: Regular, CTA Bilaterally Gastrointestinal: Yes: Normal Bowel Sounds, Soft Musculoskeletal: Yes: WNL Extremities: Yes: WNL Neurological: Yes: Alert, Oriented Psychiatric: Yes: Alert, Oriented Labs: CBC, BMP 11/24/17 06:30 11/26/17 06:00 Assessment/Plan patient with recent uti coming back wiht sepsis ct scan results noted i think the infection is coming from the urinary system patient currently on zosyn Problem List - Problems (1) Sepsis secondary to UTI Code(s): A41.9 - SEPSIS, UNSPECIFIED ORGANISM; N39.0 - URINARY TRACT INFECTION, SITE NOT SPECIFIED (2) T2DM (type 2 diabetes mellitus) Code(s): E11.9 - TYPE 2 DIABETES MELLITUS WITHOUT COMPLICATIONS (3) HTN (hypertension) Code(s): I10 - ESSENTIAL (PRIMARY) HYPERTENSION 4 gm negative bacteremia plan continue zosyn cx report noted cx reports negative continue abx through today and tomorrow morning
[2017-11-26] MEDS ORDERED: DEXTROSE 5%-WATER - 50 ML IVPB ONE ×2 (09:41→17:00)
[2017-11-26] MEDS ORDERED: PT OWN MED DRAWER 7, Y5N ONE (09:41)
[2017-11-26] MEDS ORDERED: PIPERACILLIN/TAZOBACTAM 3.375 GM VIAL IVPB ONE ×2 (09:41→17:00)
[2017-11-26] MEDS: ENOXAPARIN NA (PORCINE) 40 MG/0.4 ML DISP.SYRIN SQ SCH (09:50)
[2017-11-26] MEDS ORDERED: MAGNESIUM SULF 50% (8.12 MEQ/2 ML-1 GM VIAL) IVPB ONE (10:30)
[2017-11-26] MEDS: RAMIPRIL 2.5 MG CAPSULE (FP) PO SCH (11:12)
[2017-11-26] MEDS ORDERED: INSULIN (NOVOLOG) ASPART 100 UNITS/ML 10ML VIAL ONE (11:44)
--- NOTE | 2017-11-26 12:02 | PN ---
Physical Exam: SUBJECTIVE: Patient seen and examined at bedside chills resolved feels better than yesterday Back pain resolved Toes debrided by podiatry OBJECTIVE: Vital Signs Period Temp Pulse Resp BP Sys/Conley Pulse Ox Last 24 Hr 98.0 F-98.7 F 65-74 16-20 109-147/58-76 98 GENERAL: The patient is awake, alert, and fully oriented, in no acute distress. HEAD: Normal with no signs of trauma. ENT: moist mucous membranes. NECK: Trachea midline, full range of motion LUNGS: Breath sounds equal, clear to auscultation bilaterally HEART: Regular rate and rhythm, S1, S2 without murmur ABDOMEN: Soft, nontender, nondistended, no suprapubic tenderness. No CVA tenderness EXTREMITIES: warm, well-perfused, no edema.bilateral great toes tender with possible ingrown toe nail NEUROLOGICAL: Cranial nerves II through XII grossly intact PSYCH: Normal mood, normal affect. SKIN: Warm, dry, normal turgor Laboratory Results - last 24 hr 11/25/17 11/25/17 11/26/17 16:42 21:36 05:49 Sodium Potassium Chloride Carbon Dioxide Anion Gap BUN Creatinine Creat Clearance w eGFR POC Glucometer 156 255 176 Random Glucose Calcium Magnesium 11/26/17 06:00 Sodium 141 Potassium 3.9 Chloride 109 H Carbon Dioxide 28 Anion Gap 4 L BUN 16 Creatinine 0.7 Creat Clearance w eGFR > 60 POC Glucometer Random Glucose 187 H Calcium 8.7 Magnesium 1.6 L Active Medications Generic Name Dose Route Start Last Admin Trade Name Freq PRN Reason Stop Dose Admin Acetaminophen 650 mg 11/21/17 15:36 11/21/17 23:17 Tylenol - PO 650 mg Q6H PRN Administration FEVER Atorvastatin Calcium 40 mg 11/22/17 22:00 11/25/17 21:36 Lipitor - PO 40 mg HS SLY Administration Enoxaparin Sodium 40 mg 11/22/17 10:00 11/26/17 09:50 Lovenox - SQ 40 mg DAILY SLY Administration Piperacillin Sod/Tazobactam 50 mls @ 100 mls/hr 11/21/17 22:00 11/26/17 09:50 Sod 3.375 gm/ Dextrose IVPB 100 mls/hr Q8H-IV SLY Administration Protocol Ibuprofen 400 mg 11/24/17 07:02 11/24/17 08:08 Motrin - PO 400 mg Q6H PRN Administration Fever or pain Insulin Aspart 1 vial 11/21/17 16:30 11/26/17 11:51 Novolog Vial Sliding Scale - SQ 2 units TIDAC SLY Administration Protocol Insulin Detemir 20 units 11/21/17 22:00 11/25/17 21:37 Levemir Vial SQ 20 units HS SLY Administration Ramipril 2.5 mg 11/22/17 11:45 11/26/17 11:12 Altace - PO Not Given DAILY SLY Sitagliptin Phosphate 100 mg 11/24/17 08:42 11/26/17 06:16 Januvia - PO 100 mg DAILY@0700 SLY Administration ASSESSMENT/PLAN: 57F with PMH of HTN, HLD, and DM called back to the hospital after blood and urine cultures are positive for lactose fermenting GNB. Cultures were originally taken in the ED and patient discharged with ABx. Sepsis: Patient has a UTI which has translocated to bacteremia. CT scan shows thickened urinary bladder. F/u BCx - sensitive E. coli f/u UCx - Sensitive E. Coli ID consult appreciated ID would like to continue Zosyn until tomorrow morning and discharge patient on no po ABx per ID monitor fever curve antipyretics PRN repeat cultures to assess for clearance drawn today - NGTD DM: Patient seems uncontrolled at home BGM better controlled here HbA1C 10.4-Patient needs to be better controlled as an outpatient counselled about diet and exercise and following up with her PMD patient on Metformin Januvia Novolog 10units TIDAC on levemir 18units HS at home Continue levemir 20 units continue januvia hold metformin ISS BGM TIDAC and HS HTN: ramipril 2.5mg po daily HLD: Continue Lipitor 40mg po HS Ingrown toe nails: debrided by podiatry given follow up by teacher dancing for further treatment of mycotic toenails FEN: no IVF hypomagnesemia magnesium 1.6-replete magnesium diabetic diet PPx: Lovenox Case discussed with Dr. Walton Visit type - Emergency Visit Emergency Visit: Yes ED Registration Date: 11/21/17 Care time: The patient presented to the Emergency Department on the above date and was hospitalized for further evaluation of their emergent condition. - New Patient This patient is new to me today: No - Critical Care Critical Care patient: No - Discharge Referral Referred to [facility] Med P.C.: No
--- NOTE | 2017-11-26 13:56 | PN ---
Teaching Attending Note Name of Resident: Tk Flower ATTENDING PHYSICIAN STATEMENT I saw and evaluated the patient. I reviewed the resident's note and discussed the case with the resident. I agree with the resident's findings and plan as documented. SUBJECTIVE:asymptomatic. denies Cp, SOB, fever, chills, N/V/C/D, dysuria, hematuria OBJECTIVE: Last Vital Signs Temp Pulse Resp BP Pulse Ox 98.0 F 66 16 109/58 L 98 11/26/17 10:00 11/26/17 10:00 11/26/17 10:00 11/26/17 10:00 11/25/17 21:00 General NAD ASSESSMENT AND PLAN: 57 year old woman with a history of HTN, type 2 DM, hyperlipidemia who presented to the ED on 11/21 with fever and chills, was diagnosed with UTI, and called back for positive blood cultures. 1. Sepsis secondary to E. coli UTI and bacteremia-afebrile. no leukocytosis. Repeat BCx are negative. on Zosyn day 4. plan to complete 5 days of IV abx and then can d/c home. ID on board. 2. Hypomagnesemia- Mg po 3. HTN- controlled. cont home meds 4. Hyperlipidemia- statin 5. Type 2 DM- controlled. Continue Januvia, Levemir, Novolog sliding scale 6. Onychomycosis of all nails of both feet- bedside debridement by podiatry . can f/u as outpatient 7. Obesity with BMI 31.8 8. DVT ppx- lovenox 9. plan for d/c tomorrow after completion of abx treatment. spoke with daughter present at bedside. verbalized understanding and agreement
[2017-11-26] MEDS: ATORVASTATIN CA 40 MG TABLET (FP) PO SCH (21:38)
[2017-11-26] MEDS: INSULIN (LEVEMIR) 100 UNITS/ML UNITS SQ SCH (21:38)
[2017-11-27] MEDS ORDERED: PIPERACILLIN/TAZOBACTAM 3.375 GM VIAL IVPB ONE ×3 (00:53→17:02)
[2017-11-27] MEDS ORDERED: DEXTROSE 5%-WATER - 50 ML IVPB ONE ×3 (00:54→17:02)
[2017-11-27] MEDS: PIPERACILLIN/TAZOB 3.375 GM 3.375 GM in DEXTROSE 5%-WATER - 50 ML IVPB SCH ×3 (01:38→17:09)
[2017-11-27] MEDS: INSULIN SLIDING SCALE (NOVOLOG) 1 VIAL SQ SCH ×3 (06:25→16:52)
[2017-11-27] MEDS: sitaGLIPtin PHOSPHATE 50 MG TABLET PO SCH (06:25)
--- NOTE | 2017-11-27 09:23 | PN ---
Progress Note, Physician History of Present Illness: stable no complaints - Current Medication List Current Medications: Active Medications Acetaminophen (Tylenol -) 650 mg PO Q6H PRN PRN Reason: FEVER Last Admin: 11/21/17 23:17 Dose: 650 mg Atorvastatin Calcium (Lipitor -) 40 mg PO HS [facility] Last Admin: 11/26/17 21:38 Dose: 40 mg Enoxaparin Sodium (Lovenox -) 40 mg SQ DAILY [facility] Last Admin: 11/26/17 09:50 Dose: 40 mg Piperacillin Sod/Tazobactam (Sod 3.375 gm/ Dextrose) 50 mls @ 100 mls/hr IVPB Q8H-IV [facility]; Protocol Last Admin: 11/27/17 01:38 Dose: 100 mls/hr Ibuprofen (Motrin -) 400 mg PO Q6H PRN PRN Reason: Fever or pain Last Admin: 11/24/17 08:08 Dose: 400 mg Insulin Aspart (Novolog Vial Sliding Scale -) 1 vial SQ TIDAC [facility]; Protocol Last Admin: 11/27/17 06:25 Dose: 2 units Insulin Detemir (Levemir Vial) 20 units SQ [facility] Last Admin: 11/26/17 21:38 Dose: 20 units Ramipril (Altace -) 2.5 mg PO DAILY [facility] Last Admin: 11/26/17 11:12 Dose: Not Given Sitagliptin Phosphate (Januvia -) 100 mg PO DAILY@0700 [facility] Last Admin: 11/27/17 06:25 Dose: 100 mg - Objective Vital Signs: Vital Signs Temperature 98.0 F 11/27/17 06:00 Pulse Rate 66 11/27/17 06:00 Respiratory Rate 20 11/27/17 06:00 Blood Pressure 111/57 L 11/27/17 06:00 O2 Sat by Pulse Oximetry (%) 99 11/26/17 21:00 Constitutional: Yes: No Distress, Calm Cardiovascular: Yes: Regular Rate and Rhythm Respiratory: Yes: Regular, CTA Bilaterally Gastrointestinal: Yes: Normal Bowel Sounds, Soft Musculoskeletal: Yes: WNL Extremities: Yes: WNL Neurological: Yes: Alert, Oriented Psychiatric: Yes: Alert, Oriented Labs: CBC, BMP 11/24/17 06:30 11/26/17 06:00 Assessment/Plan patient with recent uti coming back wiht sepsis ct scan results noted i think the infection is coming from the urinary system patient currently on [email or web address] Problem List - Problems (1) Sepsis secondary to UTI Code(s): A41.9 - SEPSIS, UNSPECIFIED ORGANISM; N39.0 - URINARY TRACT INFECTION, SITE NOT SPECIFIED (2) T2DM (type 2 diabetes mellitus) Code(s): E11.9 - TYPE 2 DIABETES MELLITUS WITHOUT COMPLICATIONS (3) HTN (hypertension) Code(s): I10 - ESSENTIAL (PRIMARY) HYPERTENSION 4 gm negative bacteremia plan complete the course repeat negative once course completed patient will not need any more abx
[2017-11-27] MEDS: RAMIPRIL 2.5 MG CAPSULE (FP) PO SCH (09:40)
[2017-11-27] MEDS: ENOXAPARIN NA (PORCINE) 40 MG/0.4 ML DISP.SYRIN SQ SCH (09:41)
[2017-11-27] MEDS ORDERED: INSULIN (NOVOLOG) ASPART 100 UNITS/ML 10ML VIAL ONE ×2 (11:43→16:37)
--- NOTE | 2017-11-27 13:01 | DS ---
Physical Exam: SUBJECTIVE: Patient seen and examined. asymptomatic. denies Cp, SOB, fever, chills, N/V/C/D, dysuria OBJECTIVE: Vital Signs Period Temp Pulse Resp BP Sys/Conley Pulse Ox Last 24 Hr 9.2 F-98.5 F 63-71 16-20 85-142/50-84 99 PHYSICAL EXAM GENERAL: The patient is awake, alert, and fully oriented, in no acute distress. HEAD: Normal with no signs of trauma. EYES: PERRL, extraocular movements intact, sclera anicteric, conjunctiva clear. ENT: Ears normal, nares patent, oropharynx clear without exudates, moist mucous membranes. NECK: Trachea midline, full range of motion, supple. LUNGS: Breath sounds equal, clear to auscultation bilaterally, no wheezes, no crackles, no accessory muscle use. HEART: Regular rate and rhythm, S1, S2 without murmur, rub or gallop. ABDOMEN: Soft, nontender, nondistended, normoactive bowel sounds, no guarding, no rebound, no hepatosplenomegaly, no masses. EXTREMITIES: 2+ pulses, warm, well-perfused, no edema. NEUROLOGICAL: Cranial nerves II through XII grossly intact. Normal speech, gait not observed. PSYCH: Normal mood, normal affect. SKIN: Warm, dry, normal turgor, no rashes or lesions noted. LABS Laboratory Results - last 24 hr 11/26/17 11/26/17 11/27/17 17:13 21:14 05:35 POC Glucometer 231 185 170 11/27/17 11:40 POC Glucometer 275 HOSPITAL COURSE: Date of Admission:11/21/17 Date of Discharge: 11/27/17 Admitting diagnosis: Ecoli UTI and bacteremia Pre hospital course 57 yrs [place] f [place] [facility] [place] [facility] in [place] H/o HTN, Long standing t2DM on Insulin (Lantus 20 units bed time and Novalog 7 units TID) visiting family members in [place], last night came to Ed with c/ o fever, chills, CVA pain and tenderness with nausea for 2 days (recently treated for UTI 1 month ago) patient was worked up for UTI , UA was + so discharged on PO Levofloaxacin, around 2.00 am. Blood culture collected last night grew GNB in both bottles so patient is called back from home for IV Abx, I evaluated the patient in the ED c/o weakness, fever, chills and suprapubic pain denies any dysuria, vomiting, diarrhea, cough or SOB no c/o chest pain or Palpitation, Rpt CBC, BMP are at abse line recived 1 dise of Ceftriaxone admitted fr further management. Subsequent hospital course Admitted to medicine started on zosyn. seen by ID. clinically improved. BCx cleared. Diabetic medications adjusted. electrlytes repleted as needed. completed 5 day course of abx. determined she did not need abx on discharge. d/ c home. Minutes to complete discharge: 40 Discharge Summary Reason For Visit: UTI BACTEREMIA Current Active Problems Bacteremia (Acute) HTN (hypertension) (Acute) Sepsis secondary to UTI (Acute) T2DM (type 2 diabetes mellitus) (Acute) Urinary tract infection (Acute) - Instructions - Home Medications Comprehensive Discharge Medication List: Ambulatory Orders Insulin (LOG) Aspart [NovoLOG -] 10 units SQ TID 11/21/17 Levofloxacin [Levaquin] 750 mg PO DAILY #7 tablet 11/21/17 Atorvastatin Ca [Lipitor] 40 mg PO HS 11/22/17 Ergocalciferol [Vitamin D2] 50,000 unit PO Q7D@1000 11/22/17 Insulin Detemir [Levemir Flextouch] 18 unit SQ HS 11/22/17 Metformin HCl [Glucophage] 1,000 mg PO BID 11/22/17 Ramipril 2.5 mg PO DAILY 11/22/17 Sitagliptin Phosphate [Januvia] 100 mg PO DAILY 11/22/17 This patient is new to me today: No Emergency Visit: Yes ED Registration Date: 11/21/17 Care time: The patient presented to the Emergency Department on the above date and was hospitalized for further evaluation of their emergent condition. Critical Care patient: No - Discharge Referral Referred to [facility] Med P.C.: No
[2017-11-27 17:06] VITALS: BP 116/66; PULSE 92; TEMP 97.9
== END 2017-11-27 18:34 | disposition home or self-care (01) | DRG 872 ==
LOC: JER 14:41 → JERBED 15:43 → J8W 17:33
PROVIDERS: ADMIT Internal Medicine; ATTEND Internal Medicine
PROC: 0HBRXZZ Excision of Toe Nail, External Approach (ICD-10-PCS; principal; 2017-11-25)
PROC: 0HBRXZZ Excision of Toe Nail, External Approach (ICD-10-PCS; 2017-11-25)
PROC: 0HBRXZZ Excision of Toe Nail, External Approach (ICD-10-PCS; 2017-11-25)
PROC: 0HBRXZZ Excision of Toe Nail, External Approach (ICD-10-PCS; 2017-11-25)
PROC: 0HBRXZZ Excision of Toe Nail, External Approach (ICD-10-PCS; 2017-11-25)
PROC: 0HBRXZZ Excision of Toe Nail, External Approach (ICD-10-PCS; 2017-11-25)
PROC: 0HBRXZZ Excision of Toe Nail, External Approach (ICD-10-PCS; 2017-11-25)
PROC: 0HBRXZZ Excision of Toe Nail, External Approach (ICD-10-PCS; 2017-11-25)
PROC: 0HBRXZZ Excision of Toe Nail, External Approach (ICD-10-PCS; 2017-11-25)
PROC: 0HBRXZZ Excision of Toe Nail, External Approach (ICD-10-PCS; 2017-11-25)
DX: A41.51 Sepsis due to Escherichia coli [E. coli] (principal); N39.0 Urinary tract infection, site not specified; I10 Essential (primary) hypertension; E78.5 Hyperlipidemia, unspecified; E83.42 Hypomagnesemia; E87.6 Hypokalemia; E11.65 Type 2 diabetes mellitus with hyperglycemia; L60.0 Ingrowing nail; B35.1 Tinea unguium; E66.9 Obesity, unspecified; Z68.31 Body mass index [BMI] 31.0-31.9, adult
CPT/HCPCS: 36415; 74176; 80048; 80053; 82962; 83036; 83605; 83735; 84100; 85025; 85027; 87040; 99282-25; J7030

== ENCOUNTER 2020-05-01 14:47 | Inpatient (IN) | payer BC, OTHER ==
[2020-05-01] MEDS ORDERED: ONDANSETRON *ODT* 4 MG TABLET SL ONE (16:51)
[2020-05-01] MEDS ORDERED: ACETAMINOPHEN 325 MG TABLET (FP) PO ONE (16:51)
[2020-05-01] MEDS ORDERED: ACETAMINOPHEN 325 MG TABLET (FP) ONE (16:59)
[2020-05-01] MEDS ORDERED: ONDANSETRON *ODT* 4 MG TABLET ONE (17:00)
[2020-05-01 17:41] LABS: BASO % 0.3 % (0-2.0); EOS % 1.1 % (0-4.5); HEMATOCRIT 25.3 % (32.4-45.2); HEMOGLOBIN 8.4 GM/dL (10.7-15.3); LYMPH % 16.7 % (8-40); MCH 28.7 pg (25.7-33.7); MCHC 33.1 g/dl (32.0-36.0); MEAN CELL VOLUME 86.6 fl (80-96); MEAN PLT VOLUME 8.4 fl (7.5-11.1); MONO % 9.2 % (3.8-10.2); NEUT % 72.7 % (42.8-82.8); PLATELET COUNT 391 K/MM3 (134-434); RBC 2.92 M/mm3 (3.60-5.2); RDW 14.1 % (11.6-15.6); WHITE BLOOD COUNT 12.6 K/mm3 (4.0-10.0)
[2020-05-01 17:51] LABS: INR 1.09 (0.83-1.09); PROTHROMBIN TIME (PATIENT) 13.4 SEC (9.7-13.0)
[2020-05-01 18:10] LABS: CHLORIDE 100 mmol/L (98-107); POTASSIUM 4.4 mmol/L (3.5-5.1); SODIUM 135 mmol/L (136-145)
[2020-05-01 18:13] LABS: ALBUMIN 2.9 g/dl (3.4-5.0); ANION GAP 9 MMOL/L (8-16); BLOOD UREA NITROGEN 19.2 mg/dL (7-18); CALCIUM 9.1 mg/dL (8.5-10.1); CO2 25 mmol/L (21-32); LIPASE 60 U/L (73-393); MAGNESIUM 1.6 mg/dL (1.8-2.4)
[2020-05-01 18:14] LABS: GLUCOSE,RANDOM 118 mg/dL (74-106)
[2020-05-01 18:15] LABS: EPI CELLS 5 /uL (0-25.1); HYALINE CASTS 0 /uL (0-3.1); PH,URINE 7.5 (5.0-8.0); URINE APPEARANCE CLOUDY; URINE BACTERIA 7383 /uL (0-1359); URINE BILIRUBIN NEGATIVE (NEGATIVE); URINE COLOR YELLOW; URINE GLUCOSE (UA) NEGATIVE (NEGATIVE); URINE KETONE NEGATIVE (NEGATIVE); URINE LEUK ESTERASE 3+ (NEGATIVE); URINE NITRITE POSITIVE (NEGATIVE); URINE PROTEIN 1+ (NEGATIVE); URINE RBC 16 /uL (0-23.9); URINE WBC 470 /uL (0-25.8)
[2020-05-01 18:16] LABS: CREATININE 0.9 mg/dL (0.55-1.3); SGOT/AST 15 U/L (15-37); SGPT/ALT 27 U/L (13-61)
[2020-05-01 18:18] LABS: BILIRUBIN,TOTAL 0.4 mg/dL (0.2-1); TOT PROT 7.4 g/dl (6.4-8.2)
[2020-05-01 18:19] LABS: ALK PHOS 167 U/L (45-117)
[2020-05-01] MEDS ORDERED: CEFTRIAXONE 1 GM in DEXTROSE 5%-WATER - 100 ML IVPB ONE (18:51)
[2020-05-01] MEDS ORDERED: CEFTRIAXONE 1 GM/50 ML BAG ONE (19:14)
[2020-05-01] MEDS ORDERED: MORPHINE SULFATE 2 MG/ML VIAL IM ONE (22:41)
[2020-05-01] MEDS ORDERED: MORPHINE SULFATE 2 MG/ML VIAL ONE (23:03)
[2020-05-02] MEDS ORDERED: PIPERACILLIN/TAZOB 3.375 GM 3.375 GM in DEXTROSE 5%-WATER - 50 ML IVPB SCH ×2 (00:30→10:00)
[2020-05-02] MEDS ORDERED: VANCOMYCIN 1 GRAM (PRE-DOCKED) 1,000 MG/250 ML BAG IVPB ONE ×2 (00:30→01:34)
[2020-05-02] MEDS ORDERED: PIPERACILLIN/TAZOB 3.375 GM 3.375 GM/50 ML BAG IVPB ONE ×2 (01:35→10:05)
[2020-05-02 02:52] LABS: HEMATOCRIT 25.6 % (32.4-45.2); HEMOGLOBIN 8.5 GM/dL (10.7-15.3); MCH 28.7 pg (25.7-33.7); MCHC 33.2 g/dl (32.0-36.0); MEAN CELL VOLUME 86.5 fl (80-96); MEAN PLT VOLUME 8.5 fl (7.5-11.1); PLATELET COUNT 394 K/MM3 (134-434); RBC 2.97 M/mm3 (3.60-5.2); RDW 13.8 % (11.6-15.6); WHITE BLOOD COUNT 13.2 K/mm3 (4.0-10.0)
[2020-05-02 07:19] LABS: BASO % 0.4 % (0-2.0); EOS % 0.5 % (0-4.5); HEMATOCRIT 25.4 % (32.4-45.2); HEMOGLOBIN 8.7 GM/dL (10.7-15.3); MCH 29.6 pg (25.7-33.7); MCHC 34.2 g/dl (32.0-36.0); MEAN CELL VOLUME 86.6 fl (80-96); MEAN PLT VOLUME 8.2 fl (7.5-11.1); MONO % 8.4 % (3.8-10.2); NEUT % 77.7 % (42.8-82.8); PLATELET COUNT 386 K/MM3 (134-434); RBC 2.94 M/mm3 (3.60-5.2); RDW 14.1 % (11.6-15.6); WHITE BLOOD COUNT 12.6 K/mm3 (4.0-10.0)
[2020-05-02 07:39] LABS: POTASSIUM 4.3 mmol/L (3.5-5.1)
[2020-05-02 07:43] LABS: CALCIUM 8.8 mg/dL (8.5-10.1)
[2020-05-02 07:44] LABS: ALBUMIN 2.8 g/dl (3.4-5.0); BLOOD UREA NITROGEN 16.9 mg/dL (7-18); MAGNESIUM 1.6 mg/dL (1.8-2.4)
[2020-05-02 07:47] LABS: PHOSPHOROUS 4.9 mg/dL (2.5-4.9)
[2020-05-02 07:49] LABS: BILIRUBIN,TOTAL 0.6 mg/dL (0.2-1); TOT PROT 7.2 g/dl (6.4-8.2)
[2020-05-02] MEDS: INSULIN SLIDING SCALE (NOVOLOG) 1 VIAL SQ SCH ×4 (08:05→22:16)
[2020-05-02] MEDS: VANCOMYCIN 1 GM in D5W (PRE-DOCKED) 1,000 MG/250 ML IVPB SCH (13:53)
[2020-05-02] MEDS: PIPERACILLIN/TAZOB 3.375 GM 3.375 GM in DEXTROSE 5%-WATER - 50 ML IVPB SCH ×2 (13:54→18:55)
[2020-05-02] MEDS ORDERED: LISINOPRIL 5 MG TABLET PO ONE (17:20)
[2020-05-02] MEDS ORDERED: MAGNESIUM SULF 50% (8.12 MEQ/2 ML-1 GM VIAL) IVPB ONE (17:22)
[2020-05-02] MEDS ORDERED: oxyCODONE HCL 5 MG TABLET PO PRN ×2 (17:44)
[2020-05-02] MEDS ORDERED: ACETAMINOPHEN 1000 MG/100 ML VIAL (NON FORMULARY) IVPB PRN (17:44)
[2020-05-02] MEDS ORDERED: PIPERACILLIN/TAZOBACTAM 3.375 GM VIAL IVPB ONE (17:56)
[2020-05-02] MEDS ORDERED: DEXTROSE 5%-WATER - 50 ML IVPB ONE (17:57)
[2020-05-02 21:20] VITALS: BMI 23.8
[2020-05-02] MEDS: ATORVASTATIN CA 40 MG TABLET (FP) PO SCH (22:16)
[2020-05-03] MEDS ORDERED: PIPERACILLIN/TAZOBACTAM 3.375 GM VIAL IVPB ONE ×3 (01:51→17:19)
[2020-05-03] MEDS ORDERED: DEXTROSE 5%-WATER - 50 ML IVPB ONE ×3 (01:51→17:19)
[2020-05-03] MEDS: PIPERACILLIN/TAZOB 3.375 GM 3.375 GM in DEXTROSE 5%-WATER - 50 ML IVPB SCH ×3 (02:09→18:29)
[2020-05-03] MEDS: INSULIN SLIDING SCALE (NOVOLOG) 1 VIAL SQ SCH ×4 (06:23→22:21)
[2020-05-03] MEDS ORDERED: INSULIN (NOVOLOG) ASPART 100 UNITS/ML 10ML VIAL ONE (07:30)
[2020-05-03 08:36] LABS: BASO % 0.6 % (0-2.0); EOS % 0.4 % (0-4.5); HEMATOCRIT 23.3 % (32.4-45.2); HEMOGLOBIN 7.9 GM/dL (10.7-15.3); LYMPH % 8.7 % (8-40); MCH 29.2 pg (25.7-33.7); MCHC 33.8 g/dl (32.0-36.0); MEAN CELL VOLUME 86.4 fl (80-96); MEAN PLT VOLUME 7.9 fl (7.5-11.1); MONO % 7.2 % (3.8-10.2); NEUT % 83.1 % (42.8-82.8); PLATELET COUNT 380 K/MM3 (134-434); RDW 14.1 % (11.6-15.6); WHITE BLOOD COUNT 18.6 K/mm3 (4.0-10.0)
[2020-05-03 09:02] LABS: POTASSIUM 4.4 mmol/L (3.5-5.1)
[2020-05-03 09:09] LABS: BLOOD UREA NITROGEN 25.3 mg/dL (7-18); CALCIUM 8.5 mg/dL (8.5-10.1); MAGNESIUM 2.3 mg/dL (1.8-2.4)
[2020-05-03] MEDS ORDERED: RAMIPRIL 2.5 MG CAPSULE PO SCH (10:00)
[2020-05-03] MEDS ORDERED: MIDAZOLAM HCL 2 MG/2 ML SINGLE DOSE VIAL IVPUSH ONE (10:50)
[2020-05-03] MEDS: DOCUSATE SODIUM 100 MG CAPSULE (FP) PO PRN (16:01)
[2020-05-03] MEDS: POLYETHYLENE GLYCOL 3350 119 GM BTL PO SCH (16:01)
[2020-05-03 16:06] LABS: BASO % 0.3 % (0-2.0); EOS % 0.3 % (0-4.5); HEMATOCRIT 25.2 % (32.4-45.2); HEMOGLOBIN 8.4 GM/dL (10.7-15.3); LYMPH % 7.9 % (8-40); MCHC 33.3 g/dl (32.0-36.0); MEAN CELL VOLUME 87.1 fl (80-96); MEAN PLT VOLUME 8.3 fl (7.5-11.1); MONO % 7.2 % (3.8-10.2); NEUT % 84.3 % (42.8-82.8); PLATELET COUNT 415 K/MM3 (134-434); RBC 2.89 M/mm3 (3.60-5.2); RDW 14.2 % (11.6-15.6); WHITE BLOOD COUNT 18.2 K/mm3 (4.0-10.0)
[2020-05-03] MEDS ORDERED: ONDANSETRON 4 MG/2 ML VIAL IVPUSH ONE (19:17)
[2020-05-03] MEDS ORDERED: SODIUM CHLORIDE 1,000 ML IV SCH (20:00)
[2020-05-03] MEDS: ATORVASTATIN CA 40 MG TABLET (FP) PO SCH (22:21)
[2020-05-04 01:42] LABS: EPI CELLS 8 /uL (0-25.1); HYALINE CASTS 2 /uL (0-3.1); URINE APPEARANCE CLOUDY; URINE BACTERIA 137 /uL (0-1359); URINE BILIRUBIN NEGATIVE (NEGATIVE); URINE COLOR YELLOW; URINE GLUCOSE (UA) NEGATIVE (NEGATIVE); URINE KETONE NEGATIVE (NEGATIVE); URINE LEUK ESTERASE 2+ (NEGATIVE); URINE NITRITE NEGATIVE (NEGATIVE); URINE PROTEIN 1+ (NEGATIVE); URINE RBC 15 /uL (0-23.9); URINE UROBILINOGEN 0.2 mg/dL (0.2-1.0); URINE WBC 341 /uL (0-25.8)
[2020-05-04] MEDS ORDERED: PIPERACILLIN/TAZOBACTAM 3.375 GM VIAL IVPB ONE ×3 (01:45→17:01)
[2020-05-04] MEDS ORDERED: DEXTROSE 5%-WATER - 50 ML IVPB ONE ×3 (01:46→17:02)
[2020-05-04] MEDS: PIPERACILLIN/TAZOB 3.375 GM 3.375 GM in DEXTROSE 5%-WATER - 50 ML IVPB SCH ×3 (01:48→17:12)
[2020-05-04] MEDS: INSULIN SLIDING SCALE (NOVOLOG) 1 VIAL SQ SCH ×4 (06:19→21:26)
[2020-05-04] MEDS: morphine SULFATE 4 MG/ML VIAL IV PRN ×2 (09:28→17:12)
[2020-05-04] MEDS: POLYETHYLENE GLYCOL 3350 119 GM BTL PO SCH (09:28)
[2020-05-04 10:41] LABS: BASO % 0.4 % (0-2.0); EOS % 1.3 % (0-4.5); HEMATOCRIT 21.8 % (32.4-45.2); HEMOGLOBIN 7.5 GM/dL (10.7-15.3); LYMPH % 10.7 % (8-40); MCH 29.3 pg (25.7-33.7); MCHC 34.1 g/dl (32.0-36.0); MEAN PLT VOLUME 8.1 fl (7.5-11.1); MONO % 6.6 % (3.8-10.2); PLATELET COUNT 381 K/MM3 (134-434); RBC 2.54 M/mm3 (3.60-5.2); RDW 13.5 % (11.6-15.6); WHITE BLOOD COUNT 14.3 K/mm3 (4.0-10.0)
[2020-05-04] MEDS ORDERED: oxyCODONE HCL 10 MG SUSTAINED ACTING TABLET PO SCH (11:00)
[2020-05-04] MEDS ORDERED: oxyCODONE HCL 5 MG TABLET PO PRN (11:01)
[2020-05-04 11:05] LABS: POTASSIUM 4.1 mmol/L (3.5-5.1)
[2020-05-04 11:07] LABS: ALBUMIN 2.3 g/dl (3.4-5.0); CALCIUM 8.6 mg/dL (8.5-10.1)
[2020-05-04 11:08] LABS: BLOOD UREA NITROGEN 32.8 mg/dL (7-18); MAGNESIUM 2.4 mg/dL (1.8-2.4)
[2020-05-04 11:11] LABS: CREATININE 3.6 mg/dL (0.55-1.3); PHOSPHOROUS 6.6 mg/dL (2.5-4.9)
[2020-05-04 11:12] LABS: BILIRUBIN,TOTAL 0.9 mg/dL (0.2-1); TOT PROT 6.6 g/dl (6.4-8.2)
[2020-05-04] MEDS: ONDANSETRON 4 MG/2 ML VIAL IVPB PRN ×2 (12:28→20:37)
[2020-05-04] MEDS ORDERED: ACETAMINOPHEN 1000 MG/100 ML VIAL (NON FORMULARY) IVPB ONE (15:12)
[2020-05-04] MEDS ORDERED: ACETAMINOPHEN 1000 MG/100 ML VIAL (NON FORMULARY) IVPB SCH (15:15)
[2020-05-04] MEDS ORDERED: PANTOPRAZOLE 40 MG TABLET PO SCH (16:30)
[2020-05-04] MEDS ORDERED: morphine SULFATE 4 MG/ML VIAL IVPUSH PRN ×2 (17:27)
[2020-05-04] MEDS ORDERED: ACETAMINOPHEN 1000 MG/100 ML VIAL (NON FORMULARY) IVPB PRN (17:27)
[2020-05-04] MEDS: PANTOPRAZOLE SODIUM 40 MG VIAL IVPUSH SCH (17:40)
[2020-05-04] MEDS: SODIUM CHLORIDE 1,000 ML IV SCH ×2 (20:37→22:16)
[2020-05-04] MEDS: ATORVASTATIN CA 40 MG TABLET (FP) PO SCH (21:25)
[2020-05-05] MEDS ORDERED: DEXTROSE 5%-WATER - 50 ML IVPB ONE ×2 (01:16→09:17)
[2020-05-05] MEDS ORDERED: PIPERACILLIN/TAZOBACTAM 3.375 GM VIAL IVPB ONE ×2 (01:16→09:17)
[2020-05-05] MEDS: PIPERACILLIN/TAZOB 3.375 GM 3.375 GM in DEXTROSE 5%-WATER - 50 ML IVPB SCH ×2 (02:07→09:50)
[2020-05-05] MEDS: morphine SULFATE 4 MG/ML VIAL IV PRN ×2 (02:11→09:52)
[2020-05-05] MEDS: INSULIN SLIDING SCALE (NOVOLOG) 1 VIAL SQ SCH ×4 (07:17→21:22)
[2020-05-05 09:22] LABS: BASO % 0.4 % (0-2.0); EOS % 2.1 % (0-4.5); HEMATOCRIT 29.6 % (32.4-45.2); HEMOGLOBIN 9.9 GM/dL (10.7-15.3); LYMPH % 10.1 % (8-40); MCH 28.4 pg (25.7-33.7); MCHC 33.6 g/dl (32.0-36.0); MEAN CELL VOLUME 84.5 fl (80-96); MONO % 9.3 % (3.8-10.2); NEUT % 78.1 % (42.8-82.8); PLATELET COUNT 350 K/MM3 (134-434); RDW 15.7 % (11.6-15.6)
[2020-05-05] MEDS: PANTOPRAZOLE SODIUM 40 MG VIAL IVPUSH SCH (09:50)
[2020-05-05] MEDS: POLYETHYLENE GLYCOL 3350 119 GM BTL PO SCH (09:50)
[2020-05-05] MEDS: DOCUSATE SODIUM 100 MG CAPSULE (FP) PO PRN (09:51)
[2020-05-05] MEDS: ONDANSETRON 4 MG/2 ML VIAL IVPB PRN ×2 (09:51→18:54)
[2020-05-05] MEDS ORDERED: INSULIN (LEVEMIR) 100 UNITS/ML UNITS SQ SCH (10:00)
[2020-05-05 10:02] LABS: ALBUMIN 2.1 g/dl (3.4-5.0); BLOOD UREA NITROGEN 39.4 mg/dL (7-18); CALCIUM 8.4 mg/dL (8.5-10.1)
[2020-05-05 10:04] LABS: MAGNESIUM 2.2 mg/dL (1.8-2.4)
[2020-05-05 10:05] LABS: CREATININE 4.8 mg/dL (0.55-1.3)
[2020-05-05 10:06] LABS: PHOSPHOROUS 6.9 mg/dL (2.5-4.9)
[2020-05-05 10:07] LABS: BILIRUBIN,TOTAL 0.8 mg/dL (0.2-1); TOT PROT 6.5 g/dl (6.4-8.2)
[2020-05-05] MEDS ORDERED: PIPERACILLIN/TAZOB 3.375 GM 2.25 GM in DEXTROSE 5%-WATER - 50 ML IVPB SCH (11:37)
[2020-05-05] MEDS: amLODIPine BESYLATE 5 MG TABLET (FP) PO SCH (11:55)
[2020-05-05] MEDS ORDERED: CEFAZOLIN 0.5 GM in DEXTROSE 5%-WATER - 50 ML IVPB SCH (14:00)
[2020-05-05] MEDS: CEFAZOLIN 0.5 GM in DEXTROSE 5%-WATER - 50 ML IVPB SCH ×2 (15:19→21:21)
[2020-05-05] MEDS ORDERED: PIPERACILLIN/TAZOB 2.25 GM 2.25 GM in DEXTROSE 5%-WATER - 50 ML IVPB SCH (18:00)
[2020-05-05] MEDS ORDERED: PT OWN MED DRAWER 7, Y5N ONE (20:56)
[2020-05-05] MEDS: SODIUM CHLORIDE 1,000 ML IV SCH (21:22)
[2020-05-05] MEDS: ATORVASTATIN CA 40 MG TABLET (FP) PO SCH (21:22)
[2020-05-06] MEDS: SODIUM CHLORIDE 1,000 ML IV SCH ×3 (03:45→22:12)
[2020-05-06] MEDS: INSULIN SLIDING SCALE (NOVOLOG) 1 VIAL SQ SCH ×4 (06:24→22:11)
[2020-05-06] MEDS: INSULIN (LEVEMIR) 100 UNITS/ML UNITS SQ SCH (06:24)
[2020-05-06 09:47] LABS: POTASSIUM 3.8 mmol/L (3.5-5.1)
[2020-05-06 09:48] LABS: BASO % 0.3 % (0-2.0); EOS % 1.6 % (0-4.5); HEMATOCRIT 30.8 % (32.4-45.2); HEMOGLOBIN 10.6 GM/dL (10.7-15.3); MCH 28.7 pg (25.7-33.7); MCHC 34.3 g/dl (32.0-36.0); MEAN CELL VOLUME 83.6 fl (80-96); MEAN PLT VOLUME 8.2 fl (7.5-11.1); MONO % 7.8 % (3.8-10.2); NEUT % 80.3 % (42.8-82.8); PLATELET COUNT 404 K/MM3 (134-434); RBC 3.69 M/mm3 (3.60-5.2); RDW 15.7 % (11.6-15.6); WHITE BLOOD COUNT 11.2 K/mm3 (4.0-10.0)
[2020-05-06 10:08] LABS: ALBUMIN 2.2 g/dl (3.4-5.0); BLOOD UREA NITROGEN 28.8 mg/dL (7-18); MAGNESIUM 2.1 mg/dL (1.8-2.4)
[2020-05-06 10:11] LABS: CREATININE 3.8 mg/dL (0.55-1.3); PHOSPHOROUS 4.9 mg/dL (2.5-4.9)
[2020-05-06 10:12] LABS: BILIRUBIN,TOTAL 0.5 mg/dL (0.2-1)
[2020-05-06 10:13] LABS: TOT PROT 6.9 g/dl (6.4-8.2)
[2020-05-06] MEDS ORDERED: PT OWN MED DRAWER 7, Y5N ONE ×2 (10:47→21:57)
[2020-05-06] MEDS: CEFAZOLIN 500 MG in DEXTROSE 5%-WATER - 50 ML IVPB SCH ×2 (10:57→22:12)
[2020-05-06] MEDS: POLYETHYLENE GLYCOL 3350 119 GM BTL PO SCH (11:02)
[2020-05-06] MEDS: PANTOPRAZOLE SODIUM 40 MG VIAL IVPUSH SCH (11:04)
[2020-05-06] MEDS: amLODIPine BESYLATE 5 MG TABLET (FP) PO SCH (11:04)
[2020-05-06] MEDS: morphine SULFATE 4 MG/ML VIAL IV PRN (11:05)
[2020-05-06] MEDS: ACETAMINOPHEN 500 MG TABLET (FP) PO PRN (12:11)
[2020-05-06] MEDS: SENNOSIDES 8.6MG TABLET (FP) PO SCH (22:11)
[2020-05-06] MEDS: ATORVASTATIN CA 40 MG TABLET (FP) PO SCH (22:11)
[2020-05-07] MEDS: SODIUM CHLORIDE 1,000 ML IV SCH ×2 (01:37→14:23)
[2020-05-07] MEDS: ACETAMINOPHEN 500 MG TABLET (FP) PO PRN ×2 (01:48→11:45)
[2020-05-07] MEDS: INSULIN SLIDING SCALE (NOVOLOG) 1 VIAL SQ SCH ×4 (06:17→21:27)
[2020-05-07] MEDS: INSULIN (LEVEMIR) 100 UNITS/ML UNITS SQ SCH (06:17)
[2020-05-07] MEDS ORDERED: PT OWN MED DRAWER 7, Y5N ONE ×2 (10:10→20:02)
[2020-05-07] MEDS: amLODIPine BESYLATE 5 MG TABLET (FP) PO SCH (10:15)
[2020-05-07] MEDS: CEFAZOLIN 500 MG in DEXTROSE 5%-WATER - 50 ML IVPB SCH ×2 (10:16→21:20)
[2020-05-07] MEDS: PANTOPRAZOLE SODIUM 40 MG VIAL IVPUSH SCH (10:16)
[2020-05-07] MEDS: POLYETHYLENE GLYCOL 3350 119 GM BTL PO SCH ×2 (10:24→11:37)
[2020-05-07] MEDS: SENNOSIDES 8.6MG TABLET (FP) PO SCH (21:21)
[2020-05-07] MEDS: ATORVASTATIN CA 40 MG TABLET (FP) PO SCH (21:21)
[2020-05-07] MEDS: morphine SULFATE 4 MG/ML VIAL IV PRN (21:23)
[2020-05-07] MEDS: ONDANSETRON 4 MG/2 ML VIAL IVPB PRN (21:25)
[2020-05-08] MEDS: INSULIN (LEVEMIR) 100 UNITS/ML UNITS SQ SCH (06:05)
[2020-05-08] MEDS: INSULIN SLIDING SCALE (NOVOLOG) 1 VIAL SQ SCH ×4 (06:06→22:11)
[2020-05-08 10:07] LABS: ANTIGLOMERULAR BASEMENT MEN.AB 3 units (0-20)
[2020-05-08 10:28] LABS: BASO % 0.7 % (0-2.0); EOS % 1.3 % (0-4.5); HEMOGLOBIN 11.7 GM/dL (10.7-15.3); LYMPH % 14.7 % (8-40); MCH 29.1 pg (25.7-33.7); MCHC 34.4 g/dl (32.0-36.0); MEAN CELL VOLUME 84.8 fl (80-96); MEAN PLT VOLUME 7.6 fl (7.5-11.1); NEUT % 74.3 % (42.8-82.8); PLATELET COUNT 515 K/MM3 (134-434); RBC 4.01 M/mm3 (3.60-5.2); RDW 15.6 % (11.6-15.6); WHITE BLOOD COUNT 9.8 K/mm3 (4.0-10.0)
[2020-05-08] MEDS ORDERED: PT OWN MED DRAWER 7, Y5N ONE ×2 (10:58→21:34)
[2020-05-08] MEDS: CEFAZOLIN 500 MG in DEXTROSE 5%-WATER - 50 ML IVPB SCH ×2 (11:01→22:01)
[2020-05-08] MEDS: POLYETHYLENE GLYCOL 3350 119 GM BTL PO SCH (11:01)
[2020-05-08] MEDS: PANTOPRAZOLE SODIUM 40 MG VIAL IVPUSH SCH (11:01)
[2020-05-08] MEDS: amLODIPine BESYLATE 5 MG TABLET (FP) PO SCH (11:01)
[2020-05-08 11:02] LABS: ALBUMIN 2.4 g/dl (3.4-5.0)
[2020-05-08 11:03] LABS: CALCIUM 8.7 mg/dL (8.5-10.1)
[2020-05-08 11:04] LABS: BILIRUBIN,TOTAL 0.4 mg/dL (0.2-1); BLOOD UREA NITROGEN 10.7 mg/dL (7-18); MAGNESIUM 1.5 mg/dL (1.8-2.4); TOT PROT 7.2 g/dl (6.4-8.2)
[2020-05-08 11:06] LABS: CREATININE 1.8 mg/dL (0.55-1.3); PHOSPHOROUS 4.2 mg/dL (2.5-4.9)
[2020-05-08 11:09] LABS: POTASSIUM 3.2 mmol/L (3.5-5.1)
[2020-05-08] MEDS ORDERED: POTASSIUM CHLORIDE TABS 20 MEQ TABLET.ER (FP) PO ONE (11:30)
[2020-05-08] MEDS ORDERED: MAGNESIUM OXIDE 400 MG TABLET (FP) PO ONE (11:30)
[2020-05-08 16:08] LABS: ATYPICAL pANCA <1:20 titer (Neg:<1:20); C-ANCA <1:20 titer (Neg:<1:20)
[2020-05-08] MEDS: morphine SULFATE 4 MG/ML VIAL IV PRN (18:14)
[2020-05-08] MEDS: ATORVASTATIN CA 40 MG TABLET (FP) PO SCH (22:01)
[2020-05-08] MEDS: SENNOSIDES 8.6MG TABLET (FP) PO SCH (22:02)
[2020-05-09] MEDS: INSULIN SLIDING SCALE (NOVOLOG) 1 VIAL SQ SCH ×4 (06:43→22:08)
[2020-05-09] MEDS: INSULIN (LEVEMIR) 100 UNITS/ML UNITS SQ SCH (06:45)
[2020-05-09 08:45] LABS: BASO % 0.6 % (0-2.0); EOS % 1.8 % (0-4.5); HEMATOCRIT 31.4 % (32.4-45.2); HEMOGLOBIN 10.8 GM/dL (10.7-15.3); LYMPH % 18.8 % (8-40); MCH 28.6 pg (25.7-33.7); MCHC 34.2 g/dl (32.0-36.0); MEAN CELL VOLUME 83.6 fl (80-96); MEAN PLT VOLUME 7.5 fl (7.5-11.1); MONO % 10.1 % (3.8-10.2); NEUT % 68.7 % (42.8-82.8); PLATELET COUNT 510 K/MM3 (134-434); RBC 3.76 M/mm3 (3.60-5.2); RDW 15.5 % (11.6-15.6); WHITE BLOOD COUNT 9.8 K/mm3 (4.0-10.0)
[2020-05-09 09:16] LABS: CALCIUM 8.4 mg/dL (8.5-10.1)
[2020-05-09 09:17] LABS: ALBUMIN 2.2 g/dl (3.4-5.0); BLOOD UREA NITROGEN 10.7 mg/dL (7-18); MAGNESIUM 1.3 mg/dL (1.8-2.4)
[2020-05-09 09:19] LABS: CREATININE 1.4 mg/dL (0.55-1.3); PHOSPHOROUS 3.7 mg/dL (2.5-4.9)
[2020-05-09 09:20] LABS: BILIRUBIN,TOTAL 0.4 mg/dL (0.2-1); TOT PROT 6.7 g/dl (6.4-8.2)
[2020-05-09 09:28] LABS: POTASSIUM 2.8 mmol/L (3.5-5.1)
[2020-05-09] MEDS: CEPHALEXIN MONOHYDRATE 500 MG CAPSULE (UD) PO SCH ×2 (10:06→21:51)
[2020-05-09] MEDS: ACETAMINOPHEN 500 MG TABLET (FP) PO PRN ×2 (10:06→21:52)
[2020-05-09] MEDS: amLODIPine BESYLATE 5 MG TABLET (FP) PO SCH (10:06)
[2020-05-09] MEDS: PANTOPRAZOLE SODIUM 40 MG VIAL IVPUSH SCH (10:06)
[2020-05-09] MEDS ORDERED: POTASSIUM CHLORIDE TABS 20 MEQ TABLET.ER (FP) PO ONE (11:00)
[2020-05-09] MEDS ORDERED: MAGNESIUM 2GM/50ML STERILE WATER IVPB IVPB ONE (11:00)
[2020-05-09] MEDS: KCL 10 MEQ IVPB 10 MEQ/100 ML INFUS.BAG IVPB SCH ×3 (12:40→18:16)
[2020-05-09 16:45] LABS: POTASSIUM 3.8 mmol/L (3.5-5.1)
[2020-05-09 16:48] LABS: CALCIUM 8.6 mg/dL (8.5-10.1)
[2020-05-09 16:49] LABS: BLOOD UREA NITROGEN 9.6 mg/dL (7-18)
[2020-05-09 16:52] LABS: CREATININE 1.3 mg/dL (0.55-1.3)
[2020-05-09] MEDS: POLYETHYLENE GLYCOL 3350 119 GM BTL PO SCH (17:26)
[2020-05-09] MEDS: ATORVASTATIN CA 40 MG TABLET (FP) PO SCH (21:51)
[2020-05-09] MEDS: SENNOSIDES 8.6MG TABLET (FP) PO SCH (21:52)
[2020-05-10] MEDS: INSULIN (LEVEMIR) 100 UNITS/ML UNITS SQ SCH (06:43)
[2020-05-10] MEDS: INSULIN SLIDING SCALE (NOVOLOG) 1 VIAL SQ SCH ×2 (06:43→11:36)
[2020-05-10] MEDS ORDERED: PT OWN MED DRAWER 7, Y5N ONE (09:03)
[2020-05-10] MEDS: amLODIPine BESYLATE 5 MG TABLET (FP) PO SCH (09:09)
[2020-05-10] MEDS: CEPHALEXIN MONOHYDRATE 500 MG CAPSULE (UD) PO SCH (09:09)
[2020-05-10] MEDS: POLYETHYLENE GLYCOL 3350 119 GM BTL PO SCH (09:11)
[2020-05-10 09:22] LABS: BASO % 0.7 % (0-2.0); EOS % 1.6 % (0-4.5); HEMATOCRIT 32.8 % (32.4-45.2); HEMOGLOBIN 11.2 GM/dL (10.7-15.3); LYMPH % 14.6 % (8-40); MCH 28.6 pg (25.7-33.7); MCHC 34.2 g/dl (32.0-36.0); MEAN CELL VOLUME 83.6 fl (80-96); MEAN PLT VOLUME 7.8 fl (7.5-11.1); MONO % 8.2 % (3.8-10.2); NEUT % 74.9 % (42.8-82.8); PLATELET COUNT 533 K/MM3 (134-434); RBC 3.92 M/mm3 (3.60-5.2); RDW 15.4 % (11.6-15.6); WHITE BLOOD COUNT 9.6 K/mm3 (4.0-10.0)
[2020-05-10 09:40] LABS: POTASSIUM 3.6 mmol/L (3.5-5.1)
[2020-05-10 09:46] LABS: ALBUMIN 2.2 g/dl (3.4-5.0); CALCIUM 8.5 mg/dL (8.5-10.1)
[2020-05-10 09:47] LABS: MAGNESIUM 1.8 mg/dL (1.8-2.4)
[2020-05-10 09:50] LABS: CREATININE 1.1 mg/dL (0.55-1.3); PHOSPHOROUS 3.3 mg/dL (2.5-4.9)
[2020-05-10 09:51] LABS: BILIRUBIN,TOTAL 0.6 mg/dL (0.2-1); TOT PROT 6.9 g/dl (6.4-8.2)
[2020-05-10] MEDS: PANTOPRAZOLE SODIUM 40 MG VIAL IVPUSH SCH (09:55)
[2020-05-10] MEDS ORDERED: PANTOPRAZOLE 40 MG TABLET PO SCH (10:00)
[2020-05-10 14:21] VITALS: BP 146/74; PULSE 90; TEMP 98.4
[2020-05-11] MEDS ORDERED: RAMIPRIL 2.5 MG CAPSULE PO SCH (10:00)
== END 2020-05-10 17:14 | disposition home or self-care (01) | DRG 862 ==
LOC: JER 14:47 → JERBED 20:43 → J5S 05-02 11:04
PROVIDERS: ADMIT Hospitalist; ATTEND Student in an Organized Health Care Education/Training Program
PROC: 0T9130Z Drainage of Left Kidney with Drainage Device, Percutaneous Approach (ICD-10-PCS; principal; 2020-05-03)
PROC: 30233N1 Transfusion of Nonautologous Red Blood Cells into Peripheral Vein, Percutaneous Approach (ICD-10-PCS; 2020-05-04)
DX: T81.44XA Sepsis following a procedure, initial encounter (principal); N15.1 Renal and perinephric abscess; A41.9 Sepsis, unspecified organism; N39.0 Urinary tract infection, site not specified; N17.9 Acute kidney failure, unspecified; N99.840 Postprocedural hematoma of a genitourinary system organ or structure following a genitourinary system procedure; E87.6 Hypokalemia; E83.42 Hypomagnesemia; Z79.4 Long term (current) use of insulin; D64.9 Anemia, unspecified; K59.00 Constipation, unspecified; E11.22 Type 2 diabetes mellitus with diabetic chronic kidney disease; I12.9 Hypertensive chronic kidney disease with stage 1 through stage 4 chronic kidney disease, or unspecified chronic kidney disease; N18.9 Chronic kidney disease, unspecified; B96.20 Unspecified Escherichia coli [E. coli] as the cause of diseases classified elsewhere; E88.09 Other disorders of plasma-protein metabolism, not elsewhere classified; Y83.8 Other surgical procedures as the cause of abnormal reaction of the patient, or of later complication, without mention of misadventure at the time of the procedure
CPT/HCPCS: 36415; 36430; 50432; 74018-TC-FY; 74177-TC; 77012-TC; 80048; 80053; 81003; 82010; 82436; 82550; 82565; 82962; 83036; 83516; 83520; 83605; 83690; 83735; 84100; 84133; 84155; 84165; 84300; 84484; 85025; 85027; 85610; 86160; 86225; 86256; 86850; 86900; 86901; 86922; 87040; 87070; 87075; 87086; 87186; 87205; 88108; 93005; 93010; 99285-25; C1729; C1769; C9803; J0131; P9058; Q0162; Q9967; U0003